=== PATIENT | female | born 1945 | race Caucasian/White ===

== ENCOUNTER 2016-12-19 13:17 | Emergency (ER) | payer OTHER ==
[~2016-12-19] VITALS: Ht 162.6 cm; Wt 48.4 kg
[~2016-12-19 13:17] MED LIST: CEPH500C PO; LRT5 PO; PROM25TA PO; SULF800T23 PO
[2016-12-19 13:19] VITALS: TEMP 36.7; Ht 162.6 cm; Wt 48.4 kg
[2016-12-19] MEDS ORDERED: LISINOPRIL 5 MG TAB PO ONE (13:45)
[2016-12-19] MEDS ORDERED: LISI-729 PO (13:57)
--- NOTE | 2016-12-19 13:58 | EMERGENCY ROOM VISIT NOTE ---
History Report prepared by Rodriguez: Carmela Michael Under the Supervision of: Dr. Josh Wiggins D.O. First contact with patient: 13:24 Chief Complaint: HYPERTENSION Stated Complaint: HIGH BP History of Present Illness The patient is a 71 year old female who presents to the Emergency Room with complaints of persistent hypertension that began four days ago. She currently rates her discomfort as a 5/10 in severity. The patient states that several weeks ago she began experiencing decreased hearing out of her left ear. She additionally notes allergies so she states that she took her allergy medication and Sudafed. The patient states that one week ago she stopped taking the Sudafed. She states that Saturday her blood pressure began to rise, noting 167 mmHg systolically. The patient states that since then it has been up and down intermittently. She denies any history of hypertension. The patient additionally notes hearing a cracking noise in her left ear with blowing her nose. She states that she is very active, noting that at work she often works out twice per day. Source of History: patient Onset: four days ago Position: other (global) Symptom Intensity: 5/10 Quality: other (hypertension) Timing: other (persistent) Note: Associated Symptoms: decreased hearing in left ear. Review of Systems See HPI for pertinent positives & negatives. A total of 10 systems reviewed and were otherwise negative. Past Medical & Surgical Medical Problems: (1) No Known Active Medical Problems Family History Cancer Social History Smoking Status: Never Smoker Smokeless Tobacco Use: No Alcohol Use: none Marital Status: single Housing Status: lives alone Occupation Status: employed Current/Historical Medications Scheduled Lisinopril (Prinivil), 5 MG PO QD Allergies Uncoded Allergies: [place] (Allergy, Unknown, makes her whole body weak and feel "weird", ) Physical Exam Vital Signs Date Time Temp Pulse Resp B/P (MAP) Pulse Ox O2 Delivery O2 Flow Rate FiO2 12/19/16 14:24 76 12/19/16 14:22 73 20 194/83 94 Room Air 12/19/16 13:19 36.7 96 18 186/101 98 Room Air Physical Exam CONSTITUTIONAL/VITAL SIGNS: Reviewed / noted above. GENERAL: Non-toxic in appearance. INTEGUMENTARY: Warm, dry, and [place]. HEAD: Normocephalic. EYES: without scleral icterus or trauma. ENT/OROPHARYNX: clear and moist. LYMPHADENOPATHY/NECK: Is supple without lymphadenopathy or meningismus. RESPIRATORY: Lungs clear and equal. CARDIOVASCULAR: Regular rate and rhythm. GI/ABDOMEN: Soft and nontender. No organomegaly or pulsatile mass. No rebound or guarding. Normal bowel sounds. EXTREMITIES: Warm and well perfused. BACK: No CVA tenderness. NEUROLOGICAL: Intact without focal deficits. PSYCHIATRIC: normal affect. MUSCULOSKELETAL: Normally developed with good muscle tone. Medical Decision & Procedures ER Provider Diagnostic Interpretation: X ray results and stated below per my interpretation and radiology interpretation. CHEST ONE VIEW PORTABLE CLINICAL HISTORY: Fever, sepsis, hypertension COMPARISON STUDY: 10/29/2007 FINDINGS: The cardiac and mediastinal contours are normal. There is no evidence of focal pulmonary consolidation. There is no evidence of failure. No pleural effusions are visualized.[ IMPRESSION: No active disease in the chest. Electronically signed by: Ulises Rosenberg M.D. 12/19/2016 2:11 PM Dictated Date/Time: 12/19/2016 2:11 PM Laboratory Results 12/19/16 14:00 Red Blood Count 4.22, Mean Corpuscular Volume 91.9, Mean Corpuscular Hemoglobin 29.4, Mean Corpuscular Hemoglobin Concent 32.0, Mean Platelet Volume 8.9, Neutrophils (%) (Auto) 50.9, Lymphocytes (%) (Auto) 37.1, Monocytes (%) (Auto) 9.3, Eosinophils (%) (Auto) 1.5, Basophils (%) (Auto) 1.0, Neutrophils # (Auto) 2.45, Lymphocytes # (Auto) 1.79, Monocytes # (Auto) 0.45, Eosinophils # (Auto) 0.07, Basophils # (Auto) 0.05 12/19/16 14:00 Test 12/19/16 14:00 White Blood Count 4.82 K/uL (4.8-10.8) Red Blood Count 4.22 M/uL (4.2-5.4) Hemoglobin 12.4 g/dL (12.0-16.0) Hematocrit 38.8 % (37-47) Mean Corpuscular Volume 91.9 fL (80-100) Mean Corpuscular Hemoglobin 29.4 pg (25-34) Mean Corpuscular Hemoglobin Concent 32.0 g/dl (32-36) Platelet Count 309 K/uL (130-400) Mean Platelet Volume 8.9 fL (7.4-10.4) Neutrophils (%) (Auto) 50.9 % Lymphocytes (%) (Auto) 37.1 % Monocytes (%) (Auto) 9.3 % Eosinophils (%) (Auto) 1.5 % Basophils (%) (Auto) 1.0 % Neutrophils # (Auto) 2.45 K/uL (1.4-6.5) Lymphocytes # (Auto) 1.79 K/uL (1.2-3.4) Monocytes # (Auto) 0.45 K/uL (0.11-0.59) Eosinophils # (Auto) 0.07 K/uL (0-0.5) Basophils # (Auto) 0.05 K/uL (0-0.2) RDW Standard Deviation 44.1 fL (36.4-46.3) RDW Coefficient of Variation 13.2 % (11.5-14.5) Immature Granulocyte % (Auto) 0.2 % Immature Granulocyte # (Auto) 0.01 K/uL (0.00-0.02) Prothrombin Time 10.8 SECONDS (9.0-12.0) Prothromb Time International Ratio 1.0 (0.9-1.1) Activated Partial Thromboplast Time 24.0 SECONDS (21.0-31.0) Partial Thromboplastin Ratio 0.9 Anion Gap 7.0 mmol/L (3-11) Est Creatinine Clear Calc Drug Dose 40.4 ml/min Estimated GFR () 66.9 Estimated GFR (Non- 57.7 BUN/Creatinine Ratio 15.9 (10-20) Calcium Level 9.5 mg/dl (8.5-10.1) Total Creatine Kinase 100 U/L (26-192) Creatine Kinase MB 1.7 ng/ml (0.5-3.6) Creatine Kinase MB Ratio 1.7 (0-3.0) Troponin I < 0.015 ng/ml (0-0.045) Laboratory results as stated above per my review. Medications Administered Medications (Trade) Dose Ordered Sig/Rubin Route Start Time Stop Time Status Last Admin Dose Admin Lisinopril (Zestril Tab) 5 mg NOW ONCE PO 12/19/16 13:45 12/19/16 13:46 DC 12/19/16 14:18 5 MG ECG Indication: other (hypertension) Rate (beats per minute): 77 Rhythm: normal sinus Findings: no acute ischemic change, no ectopy ED Course 1328: Previous medical records were reviewed. The patient was evaluated in room C3. A complete history and physical examination was performed. I discussed the exam findings with her and I discussed the treatment plan. She verbalized complete understanding and agreement. She is ready for discharge shortly. 1345: Ordered Lisinopril 5 mg PO. Medical Decision Differentials include: Acute coronary syndrome, myocardial infarction, CVA, TIA , anemia, infection, pneumonia, UTI, pyelonephritis, poor nutrition, dehydration , electrolyte disturbance, and hypoglycemia. This is a 71-year-old female who presents to the ED with a chief complaint of hypertension. The patient states that she is not sure how long it is been going on. She does not routinely see a doctor. She has not seen a doctor for years. She states that recently she had been taking some Sudafed for a muffled sound in her left ear. She reports this has also been going on for some time. The patient states that her blood pressure was elevated at couple weeks ago as well. She denies any other symptoms. She denies any chest pains, shortness of breath, fevers, severe headaches, other pain syndromes. The patient's exam was unremarkable. Her neurologic exam was normal. She primarily was interested in being started on a blood pressure medication. Blood work was unremarkable. EKG shows a normal sinus rhythm. Chest xray was normal. The patient was felt to be stable for discharge on lisinopril 5 mg daily. She was also advised to follow up with an ENT specialist for her ear. Her exam of her ear did not reveal any abnormalities externally and her oropharynx was clear. Medication Reconcilliation Current Medication List: was personally reviewed by me Blood Pressure Screening Patient's blood pressure: Elevated blood pressure Blood pressure disposition: Referred to PCP Impression Primary Impression: Hypertension Scribe Attestation The scribe's documentation has been prepared under my direction and personally reviewed by me in its entirety. I confirm that the note above accurately reflects all work, treatment, procedures, and medical decision making performed by me. Departure Information Dispostion Home / Self-Care Prescriptions Lisinopril (Prinivil) 5 Mg Tab 5 MG PO QD, #30 TAB Prov: Josh Wiggins D.O. 12/19/16 Referrals No Doctor, Assigned (PCP) Forms HOME CARE DOCUMENTATION FORM, IMPORTANT VISIT INFORMATION, WORK / SCHOOL INSTRUCTIONS Patient Instructions Hypertension [place], [facility], [facility] Additional Instructions Lisinopril as prescribed. Follow-up with your family doctor next week for recheck of your blood pressure your symptoms. They can also give a referral to an cloth tearer for your ear symptoms. Return here for any new or other symptoms.
--- NOTE | 2016-12-19 14:12 | DIAGNOSTIC IMAGING REPORT ---
CHEST ONE VIEW PORTABLE CLINICAL HISTORY: Fever, sepsis, hypertension COMPARISON STUDY: 10/29/2007 FINDINGS: The cardiac and mediastinal contours are normal. There is no evidence of focal pulmonary consolidation. There is no evidence of failure. No pleural effusions are visualized.[ IMPRESSION: No active disease in the chest. Electronically signed by: Ulises Rosenberg M.D. 12/19/2016 2:11 PM Dictated Date/Time: 12/19/2016 2:11 PM
[2016-12-19 14:23] LABS: BASO ABS # 0.05 K/uL (0-0.2); COMPLETE YES; EOS % 1.5 %; HEMATOCRIT 38.8 % (37-47); IG% 0.2 %; LYMPH % 37.1 %; LYMPH ABS # 1.79 K/uL (1.2-3.4); MEAN CELL VOLUME 91.9 fL (80-100); MEAN CORPUSCULAR HEMOGLOBIN 29.4 pg (25-34); MEAN PLATELET VOLUME 8.9 fL (7.4-10.4); MONO % 9.3 %; NEUT % 50.9 %; PLATELET COUNT 309 K/uL (130-400); RED BLOOD COUNT 4.22 M/uL (4.2-5.4); WHITE BLOOD COUNT 4.82 K/uL (4.8-10.8)
[2016-12-19 14:33] LABS: PARTIAL THROMBOPLASTIN RATIO 0.9; PROTHROMBIN TIME (PATIENT) 10.8 SECONDS (9.0-12.0)
[2016-12-19 14:34] LABS: BLOOD UREA NITROGEN 16 mg/dl (7-18); BUN/CREATININE RATIO 15.9 (10-20); CALCIUM 9.5 mg/dl (8.5-10.1); CARBON DIOXIDE 25 mmol/L (21-32); CHLORIDE 104 mmol/L (98-107); CREATININE 0.99 mg/dl (0.60-1.20); GLUCOSE 109 mg/dl (70-99); POTASSIUM 3.8 mmol/L (3.5-5.1); SODIUM 136 mmol/L (136-145)
[2016-12-19 14:39] LABS: CKMB/CK RATIO 1.7 (0-3.0)
[2016-12-19 15:38] VITALS: BP 180/88; PULSE 72; O2SAT 94
== END 2016-12-19 15:38 | disposition home or self-care (01) ==
LOC: C.EDB 13:18 → C.EDC 15:38
DX: I10 Essential (primary) hypertension (principal)

== ENCOUNTER 2018-05-29 14:20 | Inpatient (IN) ==
[2018-05-29] MEDS ORDERED: SODIUM CHLORIDE 0.9% 1000ML 1,000 ML IV ONE (15:07)
[2018-05-29 15:39] LABS: Basophils # (auto) 0.02 K/uL (0-0.2); Basophils % (auto) 0.3 %; Eosinophils # (auto) 0.11 K/uL (0-0.5); Eosinophils % (auto) 1.5 %; Hematocrit (blood only) 32.7 % (37-47); Hemoglobin 11.2 g/dL (12.0-16.0); Immature Granulocytes # (auto) 0.02 K/uL (0.00-0.02); Immature Granulocytes % (auto) 0.3 %; Lymphocytes % (auto) 18.2 %; Mean Corpuscular Hgb Conc 34.3 g/dL (32-36); Mean Corpuscular Volume 86.7 fL (80-100); Mean Platelet Volume 8.9 fL (7.4-10.4); Monocytes # (auto) 0.96 K/uL (0.11-0.59); Monocytes % (auto) 13.4 %; Neutrophils # (auto) 4.75 K/uL (1.4-6.5); Neutrophils % (auto) 66.3 %; Platelet Count 268 K/uL (130-400); RDW Standard Deviation 41.7 fL (36.4-46.3); Red Blood Count 3.77 M/uL (4.2-5.4); White Blood Count 7.16 K/uL (4.8-10.8)
[2018-05-29 15:52] LABS: Appearance Urine Clear (Clear); Bilirubin Urine Negative (Negative); Blood Urine 1+ (Negative); Color Urine Yellow; Glucose Urine UA Negative (Negative); Ketones Urine Negative (Negative); Leukocyte Esterase Urine 2+ (Negative); Nitrite Urine Negative (Negative); Protein Urine Negative (Negative); Specific Gravity Urine 1.013 (1.000-1.030); Urobilinogen Urine Negative (Negative)
[2018-05-29 15:52] LABS: Calcium 8.5 mg/dl (8.5-10.1); Chloride 102 mmol/L (98-107); Potassium 4.1 mmol/L (3.5-5.1); Sodium 132 mmol/L (136-145)
[2018-05-29 16:08] LABS: Alanine Aminotransferase 176 U/L (12-78); Albumin Level 3.4 gm/dl (3.4-5.0); Alkaline Phosphatase 135 U/L (45-117); Aspartate Aminotransferase 79 U/L (15-37); BUN Creatinine Ratio 8.9 (10-20); Bilirubin Direct < 0.1 mg/dl (0-0.2); Bilirubin,Total 0.3 mg/dl (0.2-1); Blood Urea Nitrogen 41 mg/dl (7-18); Carbon Dioxide 24 mmol/L (21-32); Creatinine Clr Calc Pharmacy 8.6 ml/min; Est GFR (African American) 10.2; Est GFR (Non-African American) 8.8; Glucose 92 mg/dl (70-99); Total Protein 6.9 gm/dl (6.4-8.2)
[2018-05-29 16:08] LABS: Bacteria Urine Automated 1+ (Negative); RBC Urine Automated 0-4 /hpf (0-4); WBC Urine Automated >30 /hpf (0-5)
[2018-05-29] MEDS ORDERED: cefTRIAXone SODIUM 1,000 MG/50 ML BAG IV STA (16:15)
--- NOTE | 2018-05-29 16:30 | CT Scan Report ---
CT SCAN OF THE ABDOMEN AND PELVIS WITHOUT IV CONTRAST CLINICAL HISTORY: Epigastric abdominal pain. Renal insufficiency. COMPARISON STUDY: No priors. TECHNIQUE: CT scan of the abdomen and pelvis is performed from the lung bases to the proximal femora. Images are reviewed in the axial, sagittal, and coronal planes. IV contrast was not administered for this examination due to renal insufficiency. Note that the examination is suboptimal without IV cont rast. A dose lowering technique was utilized adhering to the principles of ALARA. CT DOSE: 255.43 mGy.cm FINDINGS: Lung bases: The heart is mildly enlarged and without pericardial effusion. Emphysematous change is no lydia at the lung bases. There is bibasilar scarring/atelectasis. There are small fat-containing Bochda lek hernias. No airspace consolidation or pleural effusion is identified. Scattered calcified granulo mas are observed. There is a tiny hiatal hernia. Liver: The unenhanced liver is normal in size, contour, and attenuation. There is no intrahepatic yu iary ductal dilatation. A 2.4 cm cyst is noted in the left lobe. Gallbladder: Contracted. Spleen: Normal in size and attenuation. Pancreas: The unenhanced pancreas is grossly unremarkable. Adrenal glands: Unremarkable. Kidneys: The unenhanced kidneys are normal in size and without hydronephrosis. There are no renal romulo culi identified. There is no evidence of contour deforming renal mass lesion. There is a septated cys t versus adjacent cyst identified in the right upper pole. This measures up to 5.6 cm. Abdominal vasculature: The abdominal aorta is normal in course and caliber noting advanced atheroscle rotic calcification. Bowel: The small bowel and colon are normal in course and caliber. The appendix is not identified. Peritoneum: There is no intraperitoneal free air or abdominal ascites. Lymphadenopathy: None. Pelvic viscera: The bladder is decompressed and grossly unremarkable. The uterus is surgically absent . No adnexal lesion is seen. Skeletal structures: The skeletal structures are heterogeneously osteopenic. Moderate lumbosacral spo ndylosis is observed, with grade 1 anterolisthesis at L4-L5. No lytic or blastic lesions are seen. IMPRESSION: 1. There are no acute infectious or inflammatory findings identified in the abdomen or pelvis on this unenhanced examination. 2. Emphysema. 3. There is a thinly septated cyst versus adjacent cysts identified in the upper pole of the right ki dney, which measures up to 5.6 cm. Consider a 6 month follow-up renal ultrasound for reassessment. 4. Additional findings as above. Electronically signed by: Andrea Nelson M.D. 05/29/2018 4:29 PM
[2018-05-29] MEDS ORDERED: MoRPHine SULFATE 2 MG/ML CARP IV STA (16:34)
[2018-05-29] MEDS ORDERED: MoRPHine SULFATE 2 MG/ML CARP IV PRN (17:43)
--- NOTE | 2018-05-29 17:54 | Emergency Department Note ---
Entered by Olegario Khan acting as a scribe for Raul Lopez History of Present Illness General Chief complaint: Referred by Doctor Stated complaint: DR SENT TO ER Time Seen by Provider: 05/29/18 15:07 Source: patient and family History of Present Illness Onset (ago): hour(s) (labs obtained today) Location: head (global) Pain Consistency: + other (persistent) Quality: + other (abnormal labs) Associated symptoms: + chest pain and + other (abdominal pain) The patient is a 73 year old female who presents to the Emergency Room after referral from her PCP for abnormal labs. Family reports that the labs were ordered by her [facility] PCP for recent illness and rectal bleeding for the past several months. The patient reports some persistent abdominal pain and occasional chest pain. She notes that she urinated herself once recently, but she attributes this to dry heaving and otherwise denies urinary symptoms, history of kidney problems, or dialysis. Home Medications Home Medications Medication Instructions Recorded Confirmed Type aspirin 81 mg PO DAILY 05/29/18 05/29/18 History lisinopril 10 mg PO TID 05/29/18 05/29/18 History Allergies Allergy/AdvReac Type Severity Reaction Status Date / Time mivacurium Allergy Unknown HYPERVENTIL Verified 09/08/17 13:02 ATES azithromycin AdvReac Tachycardia Unverified 05/29/18 15:46 Past Med/Surg History Medical History CKD (chronic kidney disease), stage III (Chronic) HTN (hypertension) (Chronic) Bronchitis History of hysterectomy Hypertension Family History Other Cancer Social History Feels Safe at Home: Yes Smoking Status: Never smoker Review of Systems See HPI for pertinent positives & negatives. and A total of 10 systems reviewed and were otherwise negative Physical Exam Vital Signs Vital Signs - 24 hr 05/29/18 14:58 05/29/18 15:07 05/29/18 16:48 Temperature 36.9 C Temperature Source Oral Oral Sepsis Recent Fever Within 48 Hours No Sepsis Action Taken by Nursing No Action Required Pulse Rate 76 85 Pulse Rate from SpO2 Sensor 83 Respiratory Rate 20 23 Respiratory Effort / Characteristics Non-Labored Spontaneous Respiratory Depth Normal Blood Pressure 161/81 H 117/87 Blood Pressure Mean 107 97 Pulse Oximetry 100 97 Oxygen Delivery Method Room Air Room Air GENERAL: She is oriented to person, place, and time. She appears well-developed and well-nourished. She does not appear distressed. HENT: Exam performed. Head: Normocephalic and atraumatic. Right Ear: External ear normal. No mastoid tenderness. Left Ear: External ear normal. No mastoid tenderness. Mouth/Throat: The oropharynx is clear and moist. No trismus in the jaw. No dental abscesses or uvula swelling. No oropharyngeal exudate or tonsillar abscesses. EYES: Conjunctivae and EOM are normal. Pupils are equal, round, and reactive to light. Right eye exhibits no discharge. Left eye exhibits no discharge. No scleral icterus. NECK: Normal range of motion. Neck supple. No JVD present. No spinous process tenderness present. No carotid bruit present. No rigidity. No tracheal deviation and normal range of motion present. No Brudzinski's sign and no Kernig's sign noted. CV: Normal rate, regular rhythm, normal heart sounds and intact distal pulses. There is no peripheral edema. Palpable radial pulses bue. PULM/CHEST: Effort normal and breath sounds normal. No respiratory distress. No stridor. She has no wheezes. She has no rales. Chest Wall: She exhibits no tenderness. ABD: The abdomen is soft. Bowel sounds are normal. She has no distension. No mas s is present. There is no tenderness. There is no rebound, no guarding, no Trujillo's sign and no tenderness at McBurney's point. Rovsig negative. RECTAL: Bright red blood per rectum. MUSC/SKEL: Normal range of motion. There is no peripheral edema, tenderness or deformity. LYMPH: No cervical adenopathy. NEURO: She is alert and oriented to person, place, and time. She has normal strength. No cranial nerve deficit or sensory deficit. Coordination and gait normal. GCS eye subscore is 4. GCS verbal subscore is 5. GCS motor subscore is 6. cerbellar tests wnl. SKIN: Skin is warm and dry. She is not diaphoretic. PSYCH: She has a normal mood and affect. Her behavior is normal. Judgment and thought content normal. Course 1518: The patient was evaluated in room C10, and a complete history and physical examination were performed. EMR reviewed. Outpatient labs were performed today showing creatinine of 4.9 and potassium of 4.3. The patients baseline creatinine is 1. 1637: Vital signs stable. Labs show a creatinine of 4.64. Lipase 2655. Hemo globin stable. No leukocytosis. Urine is concerning for infection. Patient will be treated with Rocephin 1 g IV piggyback. Liver enzymes are also elevated, AST 79 ALT 176, [address] of the abdomen was conducted without contrast due to patient's acute kidney injury and it showed no acute infectious or inflammatory findings. Gallbladder was contracted, there is no intrahepatic biliary duct dilatation. Pancreas was grossly unremarkable. I consulted Rosalia Saxena PA-C: [facility] Hospitalist. The patient will be reevaluated for hospitalization. I discussed with the [facility] Hospitalist team, and they recommended obtaining an ultrasound of the right upper quadrant in addition. They will be down to see the patient shortly. Administered Medications Discontinued Medications Sodium Chloride (Nss 1000ml) 1,000 mls @ 999 mls/hr IV .[id number] ONE Stop: 05/29/18 16:07 Last Infusion: 05/29/18 16:42 Dose: 0 mls/hr Documented by: [id number] Admin: 05/29/18 15:28 Dose: 999 mls/hr Documented by: [id number] Ceftriaxone Sodium (Rocephin) 1,000 mg in 50 mls @ 100 mls/hr IV NOW STA Stop: 05/29/18 16:44 Last Infusion: 05/29/18 17:24 Dose: 0 mls/hr Documented by: [id number] Admin: 05/29/18 16:51 Dose: 100 mls/hr Documented by: [id number] Morphine Sulfate (Morphine Sulfate) 2 mg IV NOW STA Stop: 05/29/18 16:35 Last Admin: 05/29/18 16:49 Dose: 2 mg Documented by: [id number] Medical Decision Making Medical Records Attestation: I reviewed the patient's medical records. Home Medications Current Medication List: was personally reviewed by me Laboratory Data Attestation: I reviewed the patient's lab results. Result diagrams: 05/29/18 15:25 05/29/18 15:25 Lab Results 05/29/18 05/29/18 05/29/18 Range/Units 15:25 15:25 15:25 WBC 7.16 (4.8-10.8) K/uL RBC 3.77 L (4.2-5.4) M/uL Hgb 11.2 L (12.0-16.0) g/dL Hct 32.7 L (37-47) % MCV 86.7 (80-100) fL MCH 29.7 (25-34) pg MCHC 34.3 (32-36) g/dL RDW Std Deviation 41.7 (36.4-46.3) fL RDW Coeff of Robert 13.0 (11.5-14.5) % Plt Count 268 (130-400) K/uL MPV 8.9 (7.4-10.4) fL Immature Gran % (Auto) 0.3 % Neut % (Auto) 66.3 % Lymph % (Auto) 18.2 % King % (Auto) 13.4 % Eos % (Auto) 1.5 % Baso % (Auto) 0.3 % Immature Gran # (Auto) 0.02 (0.00-0.02) K/uL Neut # (Auto) 4.75 (1.4-6.5) K/uL Lymph # (Auto) 1.30 (1.2-3.4) K/uL King # (Auto) 0.96 H (0.11-0.59) K/uL Eos # (Auto) 0.11 (0-0.5) K/uL Baso # (Auto) 0.02 (0-0.2) K/uL Sodium 132 L (136-145) mmol/L Potassium 4.1 (3.5-5.1) mmol/L Chloride 102 (98-107) mmol/L Carbon Dioxide 24 (21-32) mmol/L Anion Gap 6.0 (3-11) BUN 41 H (7-18) mg/dl Creatinine 4.64 H* (0.6-1.2) mg/dl Est Cr Clr Drug Dosing 8.6 ml/min Est GFR ( Amer) 10.2 Est GFR (Non-Af Amer) 8.8 BUN/Creatinine Ratio 8.9 L (10-20) Glucose 92 (70-99) mg/dl Calcium 8.5 (8.5-10.1) mg/dl Total Bilirubin 0.3 (0.2-1) mg/dl Direct Bilirubin < 0.1 (0-0.2) mg/dl AST 79 H (15-37) U/L ALT 176 H (12-78) U/L Alkaline Phosphatase 135 H (45-117) U/L Total Protein 6.9 (6.4-8.2) gm/dl Albumin 3.4 (3.4-5.0) gm/dl Lipase 2655 H (73-393) U/L Urine Color Urine Appearance (Clear) Urine pH (4.5-7.5) Ur Specific [place] (1.000-1.030) Urine Protein (Negative) Urine Glucose (UA) (Negative) Urine Ketones (Negative) Urine Blood (Negative) Urine Nitrite (Negative) Urine Bilirubin (Negative) Urine Urobilinogen (Negative) Ur Leukocyte Esterase (Negative) Urine WBC (Auto) (0-5) /hpf Urine RBC (Auto) (0-4) /hpf U Hyaline Cast (Auto) (0-5) /lpf U Epithel Cells (Auto) (0-5) /lpf Urine Bacteria (Auto) (Negative) Blood Type A Positive Antibody Screen NEGATIVE 05/29/18 05/29/18 Range/Units 15:25 15:30 WBC (4.8-10.8) K/uL RBC (4.2-5.4) M/uL Hgb (12.0-16.0) g/dL Hct (37-47) % MCV (80-100) fL MCH (25-34) pg MCHC (32-36) g/dL RDW Std Deviation (36.4-46.3) fL RDW Coeff of Robert (11.5-14.5) % Plt Count (130-400) K/uL MPV (7.4-10.4) fL Immature Gran % (Auto) % Neut % (Auto) % Lymph % (Auto) % King % (Auto) % Eos % (Auto) % Baso % (Auto) % Immature Gran # (Auto) (0.00-0.02) K/uL Neut # (Auto) (1.4-6.5) K/uL Lymph # (Auto) (1.2-3.4) K/uL King # (Auto) (0.11-0.59) K/uL Eos # (Auto) (0-0.5) K/uL Baso # (Auto) (0-0.2) K/uL Sodium (136-145) mmol/L Potassium (3.5-5.1) mmol/L Chloride (98-107) mmol/L Carbon Dioxide (21-32) mmol/L Anion Gap (3-11) BUN (7-18) mg/dl Creatinine (0.6-1.2) mg/dl Est Cr Clr Drug Dosing ml/min Est GFR ( Amer) Est GFR (Non-Af Amer) BUN/Creatinine Ratio (10-20) Glucose (70-99) mg/dl Calcium (8.5-10.1) mg/dl Total Bilirubin (0.2-1) mg/dl Direct Bilirubin (0-0.2) mg/dl AST (15-37) U/L ALT (12-78) U/L Alkaline Phosphatase (45-117) U/L Total Protein (6.4-8.2) gm/dl Albumin (3.4-5.0) gm/dl Lipase Cancelled (73-393) U/L Urine Color Yellow Urine Appearance Clear (Clear) Urine pH 5.0 (4.5-7.5) Ur Specific [place] 1.013 (1.000-1.030) Urine Protein Negative (Negative) Urine Glucose (UA) Negative (Negative) Urine Ketones Negative (Negative) Urine Blood 1+ H (Negative) Urine Nitrite Negative (Negative) Urine Bilirubin Negative (Negative) Urine Urobilinogen Negative (Negative) Ur Leukocyte Esterase 2+ H (Negative) Urine WBC (Auto) >30 H (0-5) /hpf Urine RBC (Auto) 0-4 (0-4) /hpf U Hyaline Cast (Auto) 1-5 (0-5) /lpf U Epithel Cells (Auto) 10-20 H (0-5) /lpf Urine Bacteria (Auto) 1+ H (Negative) Blood Type Antibody Screen Imaging Data Radiologist's Impression: Radiology results as stated below per my review and the radiologist's interpretation: CT SCAN OF THE ABDOMEN AND PELVIS WITHOUT IV CONTRAST CLINICAL HISTORY: Epigastric abdominal pain. Renal insufficiency. COMPARISON STUDY: No priors. TECHNIQUE: CT scan of the abdomen and pelvis is performed from the lung bases to the proximal femora. Images are reviewed in the axial, sagittal, and coronal planes. IV contrast was not administered for this examination due to renal insufficiency. Note that the examination is suboptimal without IV contrast. A dose lowering technique was utilized adhering to the principles of ALARA. CT DOSE: 255.43 mGy.cm FINDINGS: Lung bases: The heart is mildly enlarged and without pericardial effusion. Emphysematous change is noted at the lung bases. There is bibasilar scarring/atelectasis. There are small fat-containing Bochdalek hernias. No airspace consolidation or pleural effusion is identified. Scattered calcified granulomas are observed. There is a tiny hiatal hernia. Liver: The unenhanced liver is normal in size, contour, and attenuation. There is no intrahepatic biliary ductal dilatation. A 2.4 cm cyst is noted in the left lobe. Gallbladder: Contracted. Spleen: Normal in size and attenuation. Pancreas: The unenhanced pancreas is grossly unremarkable. Adrenal glands: Unremarkable. Kidneys: The unenhanced kidneys are normal in size and without hydronephrosis. There are no renal calculi identified. There is no evidence of contour deforming renal mass lesion. There is a septated cyst versus adjacent cyst identified in t he right upper pole. This measures up to 5.6 cm. Abdominal vasculature: The abdominal aorta is normal in course and caliber noting advanced atherosclerotic calcification. Bowel: The small bowel and colon are normal in course and caliber. The appendix is not identified. Peritoneum: There is no intraperitoneal free air or abdominal ascites. Lymphadenopathy: None. Pelvic viscera: The bladder is decompressed and grossly unremarkable. The uterus is surgically absent. No adnexal lesion is seen. Skeletal structures: The skeletal structures are heterogeneously osteopenic. Moderate lumbosacral spondylosis is observed, with grade 1 anterolisthesis at L4-L5. No lytic or blastic lesions are seen. IMPRESSION: 1. There are no acute infectious or inflammatory findings identified in the abdomen or pelvis on this unenhanced examination. 2. Emphysema. 3. There is a thinly septated cyst versus adjacent cysts identified in the upper pole of the right kidney, which measures up to 5.6 cm. Consider a 6 month follow-up renal ultrasound for reassessment. 4. Additional findings as above. Electronically signed by: Andrea Nelson M.D. 05/29/2018 4:29 PM ECG Data Attestation: I personally reviewed and interpreted this ECG as follows: Indication: other (abnormal labs) Rate (beats per minute): 72 Rhythm: sinus rhythm Findings: + other (QRS and QTc intervals within normal limits) Blood Pressure Blood Pressure Findings: Elevated blood pressure Blood Pressure Disposition: further management by hospitalist MDM Narrative Vital signs stable. Labs show a creatinine of 4.64. Lipase 2655. Hemoglobin st able. No leukocytosis. Urine is concerning for infection. Patient will be treated with Rocephin 1 g IV piggyback. Liver enzymes are also elevated, AST 79 ALT 176, [address] of the abdomen was conducted without contrast due to patient's acute kidney injury and it showed no acute infectious or inflammatory findings. Gallbladder was contracted, there is no intrahepatic biliary duct dilatation. Pancreas was grossly unremarkable. I consulted Rosalia Saxena PA-C: [facility] Hospitalist. The patient will be reevaluated for hospitalization. I discussed with the [facility] hospitalist team, and they recommended obtaining an ultrasound of the right upper quadrant in addition. They will be down to see the patient shortly. Impression & Plan MAGGI (acute kidney injury), UTI (urinary tract infection), Pancreatitis Discharge Plan Visit Data Chief Complaint: Referred by Doctor Stated Complaint: DR SENT TO ER ED Provider: Raul Lopez Discharge Problem: MAGGI (acute kidney injury), UTI (urinary tract infection), Pancreatitis Patient Disposition: Being Evaluated by Hospitalist Forms Stand Alone Forms: My [facility] Prescriptions Prescriptions: No Action lisinopril 10 mg tablet 10 mg PO TID RF: 0 aspirin 81 mg Tablet,Chewable 81 mg PO DAILY RF: 0 Referrals Referrals: Cristian Ragsdale MD [Primary Care Provider] - Discharge Problem: UTI (urinary tract infection) Qualifiers: Urinary tract infection type: site unspecified Hematuria presence: with hematuria Qualified Code(s): N39.0 - Urinary tract infection, site not specified Pancreatitis Qualifiers: Chronicity: acute Pancreatitis type: unspecified pancreatitis type Acute pancreatitis complication: unspecified Qualified Code(s): K85.90 - Acute pancreatitis without necrosis or infection, unspecified The scribe's documentation has been prepared under my direction and personally reviewed by me in its entirety. I confirm that the note above accurately reflects all work, treatment, procedures, and medical decision making performed by me.
--- NOTE | 2018-05-29 20:25 | History & Physical Report ---
Date of Service May 29, 2018 Assessment & Plan (1) MAGGI (acute kidney injury): Pt with diarrhea, vomiting started 4 days ago. Poor oral intake. Is on lisinopril. Presented with Cr: 4.6. Baseline Cr: 1. CT abd/pelvis without contrast: No ureteral stone noted. There is a thinly septated cyst versus adjacent cysts identified in the upper pole of the right kidney, which measures up to 5.6 cm. Na: 132, K: 4.1, Cl: 102, CO2: 24, BUN: 41, Cr: 4.6, GFR: 8.8 -treat UTI as below -monitor renal functions -IVF -avoid nephrotoxic agents, avoid NSAIDs, lisinopril -nephrology consult, appreciate recommendations. Discussed IVF with fusion operator and recommends LR @100ml/hr (2) Pancreatitis: Onset diarrhea, vomiting, epigastric abdominal pain [address] Abd/pelvis w/o contrast: There are no acute infectious or inflammatory findings identified in the abdomen or pelvis on this unenhanced examination Bili: <0.1, AST: 79, ALT: 176, Alk Phos: 135, lipase: 2655 -LR @100ml/hr -npo -zofran prn nausea, morphine prn pain -pending US RUQ -GI consult, appreciate recommendations (3) Elevated liver function tests: Bili: <0.1, AST: 79, ALT: 176, Alk Phos: 135, lipase: 2655 -pending US RUQ -monitor liver functions (4) UTI (urinary tract infection): Denies urinary symptoms UA: 1+blood, 2+leuk, >30 WBC, 10-20 epithel, 1+ bacteria -Rocephin -pending urine culture (5) HTN (hypertension): -Hold lisinopril with MAGGI -monitor BP, may need to consider different agent (6) Rectal bleeding: Reported hx bright red rectal bleeding with BM's x several months Hgb: 11 -monitor -GI consult, appreciate recommendations DVT Prophylaxis -SCDs for now with reported hx rectal bleeding Full Code as per discussion with pt Follows with Dr Khan for routine care Pt was seen with Dr Charles. See addendum History of Present Illness Chief Complaint: abdominal pain, abnormal labs Primary Care Provider: Cristian Ragsdale MD Pt is a 73 y/o F with PMH HTN, CKD III who presented to ER from PCP office for abdominal pain and abnormal renal functions. Patient reports numerous episodes of diarrhea, episodes of vomiting 4 days ago. Also started mid abdominal pain with radiation to LUQ, and having mid back pain. C/O generalized ANDUJAR, intermittent dizziness with standing. Reports last episode of diarrhea was 2 days ago. Patient has been having dry heaves for the past several days. Reports chills however did not record fevers at home. Reports has had decreased appetite and decreased oral intake. Past couple of days with increased burping and had trouble swallowing solids. States yesterday was able to eat some cream soup. Has been able to swallow liquids today, denies food bolus sensation. Was seen at PCPs office today for symptoms and was given dose of Toradol and had labs revealing creatinine >4 with her baseline ~1. Patient reports that has been having bright red bloody stools for several months, initially with benign colonoscopy however reports is scheduled for one soon. Patient denies any recent antibiotic use, recent travel, ill contacts. Denies diaphoresis, hematemesis, syncope, vision changes, neck pain, CP, SOB, orthopnea, palpitations, cough, sore throat, choking, otalgia, rhinorrhea, paresthesias, extremity weakness, extremity edema, rashes, dysuria, hematuria, urinary frequency. Allergies Allergy/AdvReac Type Severity Reaction Status Date / Time mivacurium Allergy Unknown HYPERVENTIL Verified 09/08/17 13:02 ATES azithromycin AdvReac Tachycardia Unverified 05/29/18 15:46 Home Medications Home Medications Medication Instructions Recorded Confirmed Type aspirin 81 mg PO DAILY 05/29/18 05/29/18 History lisinopril 10 mg PO TID 05/29/18 05/29/18 History Past Med/Surg History Medical History History of hysterectomy (Chronic) CKD (chronic kidney disease), stage III (Chronic) HTN (hypertension) (Chronic) Bronchitis (Resolved) Family History Other Cancer Hypertension Social History Preferred Language: Turkish Communication Ability: Effective [place] Tower Loader Required: No Beliefs That Will Affect Care: None Current Living Situation: Alone Other Information That Helps Us Care for You: No Feels Safe at Home: Yes Safety Concerns: Feels Safe At This Time Smoking Status: Former smoker Hx Alcohol Use: No Hx Substance Use: No Review of Systems All systems reviewed & are unremarkable except as noted in HPI & below Physical Exam Vital Signs (Past 24 Hours): Last Vital Signs Temp 36.9 C 05/29/18 14:58 Pulse 66 05/29/18 19:16 Resp 19 05/29/18 19:16 BP 141/66 H 05/29/18 19:16 Pulse Ox 96 05/29/18 19:16 Physical Exam: General: no acute distress, WDWN Head: normocephalic, atraumatic Eyes: PERRL, EOM's intact, conjunctiva non-injected, anicteric ENT: normal inspection external ears, nose, mucous membranes dry Neck: supple, trachea midline, non-tender Lungs: clear, no respiratory distress, no wheezing/rhonchi/rales CV: RRR, no murmur, no pretibial edema Abd: normal BS, soft, +tender to palpation epigastric region without rebound or guarding Ext: no cyanosis, no calf tenderness Neuro: A&O x 3, no focal deficits noted, normal affect Skin: warm, dry Results & Data Laboratory Results Short CBC 05/29/18 Range/Units 15:25 WBC 7.16 (4.8-10.8) K/uL Hgb 11.2 L (12.0-16.0) g/dL Hct 32.7 L (37-47) % Plt Count 268 (130-400) K/uL BMP 05/29/18 15:25 Sodium 132 L Potassium 4.1 Chloride 102 Carbon Dioxide 24 BUN 41 H Creatinine 4.64 H* Glucose 92 Calcium 8.5 Liver Function 05/29/18 Range/Units 15:25 Total Bilirubin 0.3 (0.2-1) mg/dl Direct Bilirubin < 0.1 (0-0.2) mg/dl AST 79 H (15-37) U/L ALT 176 H (12-78) U/L Alkaline Phosphatase 135 H (45-117) U/L Albumin 3.4 (3.4-5.0) gm/dl Urine 05/29/18 Range/Units 15:30 Urine Color Yellow Urine Appearance Clear (Clear) Urine pH 5.0 (4.5-7.5) Ur Specific [place] 1.013 (1.000-1.030) Urine Protein Negative (Negative) Urine Glucose (UA) Negative (Negative) Diagnostic Findings CT ABD/PELVIS: IMPRESSION: 1. There are no acute infectious or inflammatory findings identified in the abdomen or pelvis on this unenhanced examination. 2. Emphysema. 3. There is a thinly septated cyst versus adjacent cysts identified in the upper pole of the right kidney, which measures up to 5.6 cm. Consider a 6 month follow-up renal ultrasound for reassessment. 4. Additional findings as above. Supervising Physician Co-Signing Physician Notes Care coordinated with Harper CHILDRESS. Agree with above note. Patient seen and examined. Please refer to her notes for full details. Vital signs reviewed. Physical exam: General exam: Alert and oriented. Not in acute distress. CVS: S1 and S2 heard, regular rate and rhythm, no murmurs. RS: Clear to auscultation, no wheezing or crackles. ABD: Soft, bowel sounds present, mild diffuse discomfort, no distention. TECHNOLOGY EDUCATION TEACHER: Nonfocal. EXT: No edema, no erythema. Labs: Reviewed. Assessment and plan: Nausea/vomiting/diarrhea started on saturday several episodes last diarrhea and vomiting couple of days ago but still has dry heaves not able to eat much- finding difficult to swallow and not keeping it down viral gastroenteritis? lipase elevated at 1200 could be non specific or pancreatitis ct abd/pelvis without contrast unremarkable Gall bladder US no sgall stones or acute cholecystitis NPO, Iv fluids GI consult in am MAGGI cr 4.1 BUN 41 mostly prerenal with above symptoms hold lisinopril iv fluids nephrology consulted follow labs in am UTI Rocephin follow cultures Rectal Bleed? going on for sometime hb 11 follow h and h gi consulted. Other diagnosis and plan of care as per Harper PITTS. Greg carson MD. (1) UTI (urinary tract infection) Hematuria presence: with hematuria Urinary tract infection type: site unspecified Qualified Code(s): N39.0 - Urinary tract infection, site not specified; R31.9 - Hematuria, unspecified (2) Pancreatitis Acute pancreatitis complication: unspecified Chronicity: acute Pancreatitis type: unspecified pancreatitis type Qualified Code(s): K85.90 - Acute pancreatitis without necrosis or infection, unspecified
--- NOTE | 2018-05-29 20:28 | Ultrasound Report ---
ULTRASOUND RIGHT UPPER QUADRANT ABDOMEN CLINICAL HISTORY: Epigastric abdominal pain. COMPARISON STUDY: Abdominal CT dated 05/29/2018. TECHNIQUE: Real-time, grayscale, and color flow sonography of the right upper quadrant of the abdomen was performed. Images are reviewed in the transverse and longitudinal planes. FINDINGS: Liver: The liver is normal in size and echotexture. There is no intrahepatic biliary ductal dilatatio n. A 3 cm cyst persistent adjacent cysts is noted in the left lobe. The main portal vein is patent. Gallbladder: The gallbladder is mildly distended but otherwise normal in appearance. No gallstones ar e identified. There is no gallbladder wall thickening. A sonographic Trujillo's sign is reportedly abse nt. The common bile duct measures up to 0.9 cm in diameter. Pancreas: Visualized portions of the pancreatic head and body are normal in appearance. The splenic v ein is patent. Right kidney: Survey images of the right kidney demonstrate normal size and echotexture. There is no hydronephrosis. There is a large septated cyst versus adjacent cysts present in the upper pole of the right kidney. This measures up to 8.2 cm in aggregate dimension. Ascites: Trace perihepatic/pericholecystic fluid is noted. IMPRESSION: 1. No shadowing gallstones are identified and there is no sonographic evidence of acute cholecystitis . 2. There is trace nonspecific perihepatic/pericholecystic fluid. 3. There is a large simple-appearing septated cyst versus adjacent cyst identified in the upper pole of the right kidney. A precautionary 6 month follow-up renal ultrasound is recommended for reassessme nt. Electronically signed by: Anrdea Nelson M.D. 05/29/2018 8:26 PM
[2018-05-29] MEDS: LACTATED RINGER'S 1,000 ML IV SCH (21:13)
[2018-05-29] MEDS ORDERED: LORazepam 0.5 MG TAB PO STA (22:50)
[2018-05-30] MEDS: LACTATED RINGER'S 1,000 ML IV SCH ×2 (06:03→13:17)
[2018-05-30 07:21] LABS: Hematocrit (blood only) 30.6 % (37-47); Hemoglobin 10.3 g/dL (12.0-16.0); Mean Corpuscular Hgb Conc 33.7 g/dL (32-36); Mean Corpuscular Volume 88.4 fL (80-100); Mean Platelet Volume 8.7 fL (7.4-10.4); Platelet Count 243 K/uL (130-400); RDW Coefficient of Variation 13.2 % (11.5-14.5); RDW Standard Deviation 42.5 fL (36.4-46.3); Red Blood Count 3.46 M/uL (4.2-5.4); White Blood Count 5.44 K/uL (4.8-10.8)
[2018-05-30 08:03] LABS: Alanine Aminotransferase 147 U/L (12-78); Albumin Level 2.9 gm/dl (3.4-5.0); Alkaline Phosphatase 115 U/L (45-117); Aspartate Aminotransferase 71 U/L (15-37); BUN Creatinine Ratio 9.4 (10-20); Bilirubin Direct < 0.1 mg/dl (0-0.2); Bilirubin,Total 0.2 mg/dl (0.2-1); Blood Urea Nitrogen 38 mg/dl (7-18); Calcium 8.4 mg/dl (8.5-10.1); Carbon Dioxide 21 mmol/L (21-32); Chloride 112 mmol/L (98-107); Creatinine Clr Calc Pharmacy 9.8 ml/min; Est GFR (Non-African American) 10.3; Globulin 2.9 gm/dl (2.5-4.0); Glucose 82 mg/dl (70-99); Potassium 4.6 mmol/L (3.5-5.1); Sodium 139 mmol/L (136-145); Total Protein 5.8 gm/dl (6.4-8.2)
[2018-05-30] MEDS ORDERED: ACETAMINOPHEN SOLN 500 MG/15.62 ML UDP PO PRN (08:18)
--- NOTE | 2018-05-30 09:44 | Gastrointestinal Consultation ---
Date of Consultation May 30, 2018 Assessment & Plan (1) Pancreatitis: 73 year old female w/ resolved upper abd pain, nausea, vomiting and diarrhea admitted w/ MAGGI, elevated lipase concerning for acute pancreatitis - she does have a GB, no biliary abnormality identified on current imaging. History of chronic rectal bleeding - Stool for c.diff - Stool culture - Trend H&H - Transfuse PRN - Monitor and document all GI output - OP C-scopy as arranged Pancreatitis - NPO for bowel rest - Can trial clear liquids as symptoms improve - LR 150 mL/hr - Anti-emetics PRN - Analgesia PRN - MRCP - Pending results of MRCP would recommend general surgery consultation Present on Admission?: Yes (2) Rectal bleeding: Supervising Physician Co-Signing Physician Notes Late entry: ptient was seen and examined with CASEY Chavarria on 05/30. Her note reflects our findings and plan. History of Present Illness Reason for Consultation: pancreatitis Requesting Physician: Charisse Attending Physician: Juanita Mcqueen MD History of Present Illness 73 year old female with history of endometrial CA s/p KIMBERLI&BSO, HTN, CKD-3 who presents to the ED for abnormal labs - GI asked to evaluate for rectal bleeding and pancreatits. Pt was seen and evaluated, chart reviewed. Daughter at bedside. Notes she has had chronic rectal bleeding since February. Was planning for an OP colonoscopy. Has chronic constipation on probiotics. Over the past 3-4 months has had intermittent episodes of rectal bleeding. Associated with rectal pain, rectal pressure. Will see BRB in the toilet bowl and on the toilet tissue. Associated clots. No lightheadedness or dizziness. Has never had a c-scopy before. Saturday, abrupt onset of epigastric pain radiating to her back associated w/ nausea, vomiting and diarrhea. Denies any black/bloody stools or emesis. Was evaluated by her PCP w/ labs and plan for CT scan however, was sent to the ED w/ MAGGI. this AM notes near resolution of symptoms. No nausea, vomiting. No abd pain. On arrival, she was afebrile w/o leukocytosis. H&H stable 11.8 and 35 w/ normal PLT count. BUN elevation at 42 w/ creat 4.9 which is trending down this AM BUN 38, FISHER HAND LINE 4.06. Her lipase was elevated at 2655, w/ mild LFT elevation TB 0.2, AST 71, ALT 147, ALKP 115. Baseline unknown. Noncon CT negative from GI standpoint. Urinalysis + started on ABX No ETOH No new meds No prior episods of pancreatitis Still has GB No weight loss EGD: none Colonoscopy: none ABD US: No shadowing gallstones are identified and there is no sonographic evidence of acute cholecystitis.There is trace nonspecific perihepatic/pericholecystic fluid. CT: Liver: The unenhanced liver is normal in size, contour, and attenuation. There is no intrahepatic biliary ductal dilatation. A 2.4 cm cyst is noted in the left lobe.Gallbladder: Contracted.Spleen: Normal in size and attenuation.Pancreas: The unenhanced pancreas is grossly unremarkable Allergies Allergy/AdvReac Type Severity Reaction Status Date / Time azithromycin Allergy hyperventil Verified 06/05/18 09:06 ation Home Medications Home Medications Medication Instructions Recorded Confirmed Type amlodipine [Norvasc] 5 mg PO QAM 30 Days #30 tab 06/03/18 06/06/18 Rx aspirin 81 mg PO DAILY 06/05/18 06/06/18 History Patient History Medical History History of hysterectomy (Chronic) CKD (chronic kidney disease), stage III (Chronic) HTN (hypertension) (Chronic) Bronchitis (Resolved) Surgical History History of bilateral tubal ligation History of carpal tunnel surgery of right wrist History of tonsillectomy History of tooth extraction all teeth removed History of total abdominal hysterectomy and bilateral salpingo-oophorectomy Family History Other Cancer Hypertension No family history of adverse response to anesthesia Social History Preferred Language: Pashto Communication Ability: Effective Beliefs That Will Affect Care: None Current Living Situation: Alone Feels Safe at Home: Yes Smoking Status: Former smoker Second Hand Exposure: No Hx Alcohol Use: No Hx Substance Use: No Physical Exam Vital Signs (Past 24 Hours): Last Vital Signs Temp 36.7 C 05/30/18 07:50 Pulse 75 05/30/18 07:50 Resp 20 05/30/18 07:50 BP 146/84 H 05/30/18 07:50 Pulse Ox 93 05/30/18 07:50 Constitutional: well developed, well nourished, cooperative and comfortable; no acute distress Respiratory: normal respiratory effort, lungs clear to auscultation Cardiovascular: RRR, no murmur, no edema Gastrointestinal (Abdomen): normal bowel sounds, soft, nontender, no hepatosplenomegaly Skin: no rashes, warm and dry Results & Data Laboratory Results 05/30/18 05/30/18 05/29/18 Range/Units 07:08 07:08 15:30 WBC 5.44 (4.8-10.8) K/uL RBC 3.46 L (4.2-5.4) M/uL Hgb 10.3 L (12.0-16.0) g/dL Hct 30.6 L (37-47) % MCV 88.4 (80-100) fL MCH 29.8 (25-34) pg MCHC 33.7 (32-36) g/dL RDW Std Deviation 42.5 (36.4-46.3) fL RDW Coeff of Robert 13.2 (11.5-14.5) % Plt Count 243 (130-400) K/uL MPV 8.7 (7.4-10.4) fL Immature Gran % (Auto) % Neut % (Auto) % Lymph % (Auto) % [place] % (Auto) % Eos % (Auto) % Baso % (Auto) % Immature Gran # (Auto) (0.00-0.02) K/uL Neut # (Auto) (1.4-6.5) K/uL Lymph # (Auto) (1.2-3.4) K/uL [place] # (Auto) (0.11-0.59) K/uL Eos # (Auto) (0-0.5) K/uL Baso # (Auto) (0-0.2) K/uL Sodium 139 D (136-145) mmol/L Potassium 4.6 (3.5-5.1) mmol/L Chloride 112 H (98-107) mmol/L Carbon Dioxide 21 (21-32) mmol/L Anion Gap 6.0 (3-11) BUN 38 H (7-18) mg/dl Creatinine 4.06 H D (0.6-1.2) mg/dl Est Cr Clr Drug Dosing 9.8 ml/min Est GFR ( Amer) 12.0 Est GFR (Non-Af Amer) 10.3 BUN/Creatinine Ratio 9.4 L (10-20) Glucose 82 (70-99) mg/dl Calcium 8.4 L (8.5-10.1) mg/dl Total Bilirubin 0.2 (0.2-1) mg/dl Direct Bilirubin < 0.1 (0-0.2) mg/dl AST 71 H (15-37) U/L ALT 147 H (12-78) U/L Alkaline Phosphatase 115 (45-117) U/L Total Protein 5.8 L (6.4-8.2) gm/dl Albumin 2.9 L (3.4-5.0) gm/dl Globulin 2.9 (2.5-4.0) gm/dl Albumin/Globulin Ratio 1.0 (0.9-2) Lipase 1013 H (73-393) U/L Urine Color Yellow Urine Appearance Clear (Clear) Urine pH 5.0 (4.5-7.5) Ur Specific [place] 1.013 (1.000-1.030) Urine Protein Negative (Negative) Urine Glucose (UA) Negative (Negative) Urine Ketones Negative (Negative) Urine Blood 1+ H (Negative) Urine Nitrite Negative (Negative) Urine Bilirubin Negative (Negative) Urine Urobilinogen Negative (Negative) Ur Leukocyte Esterase 2+ H (Negative) Urine WBC (Auto) >30 H (0-5) /hpf Urine RBC (Auto) 0-4 (0-4) /hpf U Hyaline Cast (Auto) 1-5 (0-5) /lpf U Epithel Cells (Auto) 10-20 H (0-5) /lpf Urine Bacteria (Auto) 1+ H (Negative) Blood Type Antibody Screen 05/29/18 05/29/18 05/29/18 Range/Units 15:25 15:25 15:25 WBC (4.8-10.8) K/uL RBC (4.2-5.4) M/uL Hgb (12.0-16.0) g/dL Hct (37-47) % MCV (80-100) fL MCH (25-34) pg MCHC (32-36) g/dL RDW Std Deviation (36.4-46.3) fL RDW Coeff of Robert (11.5-14.5) % Plt Count (130-400) K/uL MPV (7.4-10.4) fL Immature Gran % (Auto) % Neut % (Auto) % Lymph % (Auto) % [place] % (Auto) % Eos % (Auto) % Baso % (Auto) % Immature Gran # (Auto) (0.00-0.02) K/uL Neut # (Auto) (1.4-6.5) K/uL Lymph # (Auto) (1.2-3.4) K/uL [place] # (Auto) (0.11-0.59) K/uL Eos # (Auto) (0-0.5) K/uL Baso # (Auto) (0-0.2) K/uL Sodium 132 L (136-145) mmol/L Potassium 4.1 (3.5-5.1) mmol/L Chloride 102 (98-107) mmol/L Carbon Dioxide 24 (21-32) mmol/L Anion Gap 6.0 (3-11) BUN 41 H (7-18) mg/dl Creatinine 4.64 H* (0.6-1.2) mg/dl Est Cr Clr Drug Dosing 8.6 ml/min Est GFR ( Amer) 10.2 Est GFR (Non-Af Amer) 8.8 BUN/Creatinine Ratio 8.9 L (10-20) Glucose 92 (70-99) mg/dl Calcium 8.5 (8.5-10.1) mg/dl Total Bilirubin 0.3 (0.2-1) mg/dl Direct Bilirubin < 0.1 (0-0.2) mg/dl AST 79 H (15-37) U/L ALT 176 H (12-78) U/L Alkaline Phosphatase 135 H (45-117) U/L Total Protein 6.9 (6.4-8.2) gm/dl Albumin 3.4 (3.4-5.0) gm/dl Globulin (2.5-4.0) gm/dl Albumin/Globulin Ratio (0.9-2) Lipase Cancelled 2655 H (73-393) U/L Urine Color Urine Appearance (Clear) Urine pH (4.5-7.5) Ur Specific [place] (1.000-1.030) Urine Protein (Negative) Urine Glucose (UA) (Negative) Urine Ketones (Negative) Urine Blood (Negative) Urine Nitrite (Negative) Urine Bilirubin (Negative) Urine Urobilinogen (Negative) Ur Leukocyte Esterase (Negative) Urine WBC (Auto) (0-5) /hpf Urine RBC (Auto) (0-4) /hpf U Hyaline Cast (Auto) (0-5) /lpf U Epithel Cells (Auto) (0-5) /lpf Urine Bacteria (Auto) (Negative) Blood Type A Positive Antibody Screen NEGATIVE 05/29/18 Range/Units 15:25 WBC 7.16 (4.8-10.8) K/uL RBC 3.77 L (4.2-5.4) M/uL Hgb 11.2 L (12.0-16.0) g/dL Hct 32.7 L (37-47) % MCV 86.7 (80-100) fL MCH 29.7 (25-34) pg MCHC 34.3 (32-36) g/dL RDW Std Deviation 41.7 (36.4-46.3) fL RDW Coeff of Robert 13.0 (11.5-14.5) % Plt Count 268 (130-400) K/uL MPV 8.9 (7.4-10.4) fL Immature Gran % (Auto) 0.3 % Neut % (Auto) 66.3 % Lymph % (Auto) 18.2 % [place] % (Auto) 13.4 % Eos % (Auto) 1.5 % Baso % (Auto) 0.3 % Immature Gran # (Auto) 0.02 (0.00-0.02) K/uL Neut # (Auto) 4.75 (1.4-6.5) K/uL Lymph # (Auto) 1.30 (1.2-3.4) K/uL [place] # (Auto) 0.96 H (0.11-0.59) K/uL Eos # (Auto) 0.11 (0-0.5) K/uL Baso # (Auto) 0.02 (0-0.2) K/uL Sodium (136-145) mmol/L Potassium (3.5-5.1) mmol/L Chloride (98-107) mmol/L Carbon Dioxide (21-32) mmol/L Anion Gap (3-11) BUN (7-18) mg/dl Creatinine (0.6-1.2) mg/dl Est Cr Clr Drug Dosing ml/min Est GFR ( Amer) Est GFR (Non-Af Amer) BUN/Creatinine Ratio (10-20) Glucose (70-99) mg/dl Calcium (8.5-10.1) mg/dl Total Bilirubin (0.2-1) mg/dl Direct Bilirubin (0-0.2) mg/dl AST (15-37) U/L ALT (12-78) U/L Alkaline Phosphatase (45-117) U/L Total Protein (6.4-8.2) gm/dl Albumin (3.4-5.0) gm/dl Globulin (2.5-4.0) gm/dl Albumin/Globulin Ratio (0.9-2) Lipase (73-393) U/L Urine Color Urine Appearance (Clear) Urine pH (4.5-7.5) Ur Specific [place] (1.000-1.030) Urine Protein (Negative) Urine Glucose (UA) (Negative) Urine Ketones (Negative) Urine Blood (Negative) Urine Nitrite (Negative) Urine Bilirubin (Negative) Urine Urobilinogen (Negative) Ur Leukocyte Esterase (Negative) Urine WBC (Auto) (0-5) /hpf Urine RBC (Auto) (0-4) /hpf U Hyaline Cast (Auto) (0-5) /lpf U Epithel Cells (Auto) (0-5) /lpf Urine Bacteria (Auto) (Negative) Blood Type Antibody Screen (1) Pancreatitis Acute pancreatitis complication: unspecified Chronicity: acute Pancreatitis type: unspecified pancreatitis type Qualified Code(s): K85.90 - Acute pancreatitis without necrosis or infection, unspecified
--- NOTE | 2018-05-30 11:50 | Magnetic Resonance Report ---
MR MRCP CLINICAL HISTORY: elevated lipase, elevated LFTs, possibly gallstone pancreatitis. COMPARISON STUDY: Ultrasound and CT scan dated 05/29/2018 FINDINGS: There are clustered cysts versus a septated cyst involving the upper pole the right kidney measuring 8.5 cm in aggregate. There are clustered cysts within the left hepatic lobe measuring 2.6 cm in aggregate. The common bile duct measures 7 mm in maximal diameter. Pancreatic duct measures 3 mm. There is no intrahepatic biliary ductal dilatation. There are no ductal filling defects identified. There is narrowing of the common hepatic duct at the level of the hilum. No discrete mass is visualiz ed. No gallstones are visualized. IMPRESSION: 1. Nonspecific narrowing of the common hepatic duct at the level of the hilum. There is no significan t intrahepatic biliary ductal dilatation. No discrete masses are delineated. An ERCP could be obtaine d in follow-up as clinically appropriate. 2. No gallstones identified. No ductal filling defects identified. 3. 7 mm common bile duct. 3 mm pancreatic duct. 4. Septated left lobe hepatic cysts 5. Septated right renal cysts Electronically signed by: Ulises Rosenberg M.D. 05/30/2018 11:48 AM
[2018-05-30] MEDS ORDERED: HYDROmorphone INJ 0.5 MG/0.5 ML SYR IV PRN (12:08)
[2018-05-30] MEDS ORDERED: ACETAMINOPHEN 500 MG TAB PO SCH (13:00)
[2018-05-30] MEDS: cefTRIAXone SODIUM 1,000 MG in DEXTROSE 5% 50 ML IV SCH (13:16)
--- NOTE | 2018-05-30 16:16 | Hospitalist Progress Note ---
Date of Service May 30, 2018 Assessment & Plan (1) MAGGI (acute kidney injury): Likely secondary to dehydration with diarrhea, vomiting started 4 days ago. Poor oral intake and complicated by use of lisinopril IV fluids Monitor renal functions Avoid nephrotoxic agents, avoid NSAIDs, lisinopril Nephrology consult, appreciate recommendations. Discussed IVF with outside installation machinist and recommends LR @100ml/hr Renal function has been improving 4.90 on admission and 4.06 as of 05/30 We will continue current IV fluid (2) Pancreatitis: CT Abd/pelvis w/o contrast: There are no acute infectious or inflammatory findings identified in the abdomen or pelvis on this unenhanced examination Serum lipase is elevated to more than 2000 Has been n.p.o. Symptomatic treatment with Zofran prn nausea, morphine prn pain US RUQ-no gallstones or acute cholecystitis GI consult, appreciate recommendations MRCP:1. Nonspecific narrowing of the common hepatic duct at the level of the hilum. There is no significant intrahepatic biliary ductal dilatation. No discrete masses are delineated. An ERCP could be obtained in follow-up as clinically appropriate. 2. No gallstones identified. No ductal filling defects identified. 3. 7 mm common bile duct. 3 mm pancreatic duct. 4. Septated left lobe hepatic cysts 5. Septated right renal cysts Clinically improved (3) Elevated liver function tests: Bili: <0.1, AST: 79, ALT: 176, Alk Phos: 135, LFTs have been improved (4) UTI (urinary tract infection): Denies urinary symptoms UA: 1+blood, 2+leuk, >30 WBC, 10-20 epithel, 1+ bacteria -Rocephin -pending urine ; growing E. coli and sensitivities pending (5) HTN (hypertension): -Hold lisinopril with MAGGI -monitor BP, may need to consider different agent (6) Rectal bleeding: Reported hx bright red rectal bleeding with BM's x several months Hgb: 11 -monitor -GI consult, appreciate recommendations DVT Prophylaxis -SCDs for now with reported hx rectal bleeding Full Code as per discussion with pt Follows with Dr Khan for routine care Subjective 05/30 Patient was seen and examined in medical telemetry He complains of headache which is worse compared with her chronic headache at home No other associated symptoms with the headache Denies any significant abdominal pain ,nausea and/or vomiting Physical Exam Vital Signs (Past 24 Hours): Last Vital Signs Temp 36.6 C 05/30/18 15:51 Pulse 74 05/30/18 15:51 Resp 21 05/30/18 15:51 BP 174/73 H 05/30/18 15:51 Pulse Ox 94 05/30/18 15:51 Physical Exam: Lying in bed comfortably with some anxiety Constitutional: WD/WN, vitals as above Eyes: PERRL, conjunctivae normal, anicteric sclerae ENMT: external ear and nose normal, oropharynx normal Neck: trachea midline, no thyromegaly Respiratory: normal respiratory effort Auscultation: lungs clear to auscultation bilaterally Cardiovascular: Rate/Rhythm: regular rate and regular rhythm Heart Sounds: normal S1 and normal S2; no murmur Gastrointestinal (Abdomen): Inspection/Auscultation: abdomen normal to inspection and normal bowel sounds Percussion/Palpation: + abdomen tender (M ildly tender in the epigastrium) and abdomen soft Neurologic: Alert, awake and oriented x3. No focal neuro deficit Results & Data Laboratory Results Short CBC 05/30/18 Range/Units 07:08 WBC 5.44 (4.8-10.8) K/uL Hgb 10.3 L (12.0-16.0) g/dL Hct 30.6 L (37-47) % Plt Count 243 (130-400) K/uL BMP 05/29/18 05/30/18 15:25 07:08 Sodium 139 D Potassium 4.6 Chloride 112 H Carbon Dioxide 24 21 BUN 41 H 38 H Creatinine 4.64 H* 4.06 H D Glucose 92 82 Calcium 8.4 L Liver Function 05/29/18 05/30/18 Range/Units 15:25 07:08 Total Bilirubin 0.3 0.2 (0.2-1) mg/dl Direct Bilirubin < 0.1 < 0.1 (0-0.2) mg/dl AST 79 H 71 H (15-37) U/L ALT 176 H 147 H (12-78) U/L Alkaline Phosphatase 135 H 115 (45-117) U/L Albumin 3.4 2.9 L (3.4-5.0) gm/dl Medications Administered Current Inpatient Medications Acetaminophen (Tylenol) 1,000 mg PO Q6H PRN PRN Reason: Pain or Fever Stop: 06/29/18 12:59 Hydromorphone HCl (Dilaudid) 0.5 mg IV Q4H PRN PRN Reason: Pain Stop: 06/13/18 12:07 Lactated Ringer's (Lr) 1,000 mls @ 100 mls/hr IV .Q10H THOMPSON Stop: 06/28/18 20:34 Last Admin: 05/30/18 13:17 Dose: 100 mls/hr Documented by: Ceftriaxone Sodium 1,000 mg/ (Dextrose) 50 mls @ 100 mls/hr IV Q24H THOMPSON; Protocol Stop: 06/04/18 12:59 Last Infusion: 05/30/18 13:54 Dose: Infused Documented by: Morphine Sulfate (Morphine Sulfate) 2 mg IV Q4H PRN PRN Reason: Pain Stop: 06/12/18 17:42 Ondansetron HCl (Zofran) 4 mg IV Q6H PRN PRN Reason: Nausea Stop: 06/28/18 17:42 (1) Pancreatitis Acute pancreatitis complication: unspecified Chronicity: acute Pancreatitis type: unspecified pancreatitis type Qualified Code(s): K85.90 - Acute pancreatitis without necrosis or infection, unspecified (2) UTI (urinary tract infection) Hematuria presence: with hematuria Urinary tract infection type: site unspecified Qualified Code(s): N39.0 - Urinary tract infection, site not specified; R31.9 - Hematuria, unspecified
--- NOTE | 2018-05-30 18:32 | Nephrology Consultation ---
Date of Consultation May 30, 2018 Assessment & Plan (1) MAGGI (acute kidney injury): Patient with acute kidney injury likely due to prerenal azotemia in setting of diarrhea. She might progressed to ischemic ATN. She is making urine which is a good sign. Creatinine is also downtrending with IV fluids. Electrolytes are stable with no signs of volume overload. No indication for dialysis. Monitor renal function daily with BMP, monitor input output Continue Ringer's lactate at 150 mL/h. Avoid nephrotoxins unless lifesaving. (2) HTN (hypertension): Her blood pressure is high likely due to IV fluids. Agree with holding lisinopril. If systolic blood pressures above 170 and not due to pain, start amlodipine 5 mg daily. History of Present Illness Reason for Consultation: Acute kidney injury Requesting Physician: Araceli Garza MD Attending Physician: Juanita Mcqueen MD History of Present Illness This is a 73-year-old female with history of hypertension, endometrial cancer status post KIMBERLI and CKD stage III with baseline creatinine of 1 was admitted on 05/29/2018 with abdominal pain and acute kidney injury with creatinine of 4.9. She has been having diarrhea for several days and vomiting. She also had nausea with poor p.o. intake. We have been asked to evaluate her for etiology and management of her acute kidney injury. She denied NSAID use. She is being evaluated for pancreatitis given lipase of 2600. CT of the abdomen not suggestive of pancreatitis as well as MRCP. She has been receiving Ringer's lactate. Creatinine is slightly better today at 4. This morning she feels better denies any shortness of breath or lower extremity swelling. No urinary symptoms such as dysuria hematuria or frequency. She is n.p.o. Diarrhea has subsided. Allergies Allergy/AdvReac Type Severity Reaction Status Date / Time mivacurium Allergy Unknown HYPERVENTIL Verified 09/08/17 13:02 ATES azithromycin AdvReac Tachycardia Unverified 05/29/18 15:46 Home Medications Home Medications Medication Instructions Recorded Confirmed Type aspirin 81 mg PO DAILY 05/29/18 05/29/18 History lisinopril 10 mg PO TID 05/29/18 05/29/18 History Patient History Medical History History of hysterectomy (Chronic) CKD (chronic kidney disease), stage III (Chronic) HTN (hypertension) (Chronic) Bronchitis (Resolved) Family History Other Cancer Hypertension Social History Preferred Language: Ethiopian Communication Ability: Effective Cupola Operator Required: No Beliefs That Will Affect Care: None Current Living Situation: Alone Other Information That Helps Us Care for You: No Feels Safe at Home: Yes Safety Concerns: Feels Safe At This Time Smoking Status: Former smoker Hx Alcohol Use: No Hx Substance Use: No Review of Systems All other systems were reviewed and negative except as noted in HPI Physical Exam Vital Signs (Past 24 Hours): Last Vital Signs Temp 36.6 C 05/30/18 15:51 Pulse 74 05/30/18 15:51 Resp 21 05/30/18 15:51 BP 174/73 H 05/30/18 15:51 Pulse Ox 94 05/30/18 15:51 Physical Exam: General exam: Appears comfortable, no acute distress HEENT: Pupils are equal and reactive to light Neck: No JVD, neck is supple trachea is midline Respiratory system: Clear breath sounds bilaterally. Gastrointestinal: Abdomen is soft, non distended, non tender, bowel sounds are present CVS: Regular rate and rhythm. No murmurs, rubs or gallops Musculoskeletal: No joint or muscle tenderness Extremities: Non tender, no edema, peripheral pulses are present Neuro: Oriented, no tremors, no focal neurological deficits Skin: No rashes Results & Data Laboratory Results Potassium of 4.6, sodium 139, BUN 38, creatinine of 4
[2018-05-30] MEDS: ACETAMINOPHEN 500 MG TAB PO PRN (20:01)
[2018-05-31] MEDS: LACTATED RINGER'S 1,000 ML IV SCH ×3 (03:15→23:01)
[2018-05-31] MEDS: ACETAMINOPHEN 500 MG TAB PO PRN ×3 (04:24→20:56)
[2018-05-31 07:29] LABS: Basophils # (auto) 0.04 K/uL (0-0.2); Basophils % (auto) 0.8 %; Eosinophils # (auto) 0.19 K/uL (0-0.5); Eosinophils % (auto) 3.6 %; Hematocrit (blood only) 31.2 % (37-47); Hemoglobin 10.5 g/dL (12.0-16.0); Immature Granulocytes # (auto) 0.03 K/uL (0.00-0.02); Immature Granulocytes % (auto) 0.6 %; Lymphocytes # (auto) 1.22 K/uL (1.2-3.4); Lymphocytes % (auto) 23.3 %; Mean Corpuscular Hgb Conc 33.7 g/dL (32-36); Mean Corpuscular Volume 87.9 fL (80-100); Mean Platelet Volume 8.9 fL (7.4-10.4); Monocytes % (auto) 13.4 %; Neutrophils # (auto) 3.06 K/uL (1.4-6.5); Neutrophils % (auto) 58.3 %; Platelet Count 250 K/uL (130-400); RDW Coefficient of Variation 13.2 % (11.5-14.5); RDW Standard Deviation 42.9 fL (36.4-46.3); Red Blood Count 3.55 M/uL (4.2-5.4); White Blood Count 5.24 K/uL (4.8-10.8)
[2018-05-31 07:47] LABS: BUN Creatinine Ratio 10.1 (10-20); Calcium 8.5 mg/dl (8.5-10.1); Creatinine Clr Calc Pharmacy 12.3 ml/min; Est GFR (Non-African American) 13.8; Potassium 4.5 mmol/L (3.5-5.1)
[2018-05-31] MEDS: ONDANSETRON INJ 2 MG/ML 2 ML VIAL IV PRN ×2 (08:05→14:50)
--- NOTE | 2018-05-31 10:27 | Hospitalist Progress Note ---
Date of Service May 31, 2018 delayed entry date of service as noted above Assessment & Plan (1) MAGGI (acute kidney injury): Likely secondary to dehydration with diarrhea, vomiting started 4 days ago. Poor oral intake and complicated by use of lisinopril Nephrology has been consulted Patient on lactated Ringer's 100 cc/h Creatinine improved from 4 now down to 3 Good urine output Continue LR, monitor creatinine (2) Pancreatitis: CT Abd/pelvis w/o contrast: There are no acute infectious or inflammatory findings identified in the abdomen or pelvis on this unenhanced examination Serum lipase is elevated to more than 2000 Has been n.p.o. Symptomatic treatment with Zofran prn nausea, morphine prn pain US RUQ-no gallstones or acute cholecystitis GI consult, appreciate recommendations MRCP:1. Nonspecific narrowing of the common hepatic duct at the level of the hilum. There is no significant intrahepatic biliary ductal dilatation. No discrete masses are delineated. An ERCP could be obtained in follow-up as clinically appropriate. 2. No gallstones identified. No ductal filling defects identified. 3. 7 mm common bile duct. 3 mm pancreatic duct. 4. Septated left lobe hepatic cysts 5. Septated right renal cysts --Lipase normalized Abdominal pain improving Abdomen soft Clear liquids ordered (3) Elevated liver function tests: Bili: <0.1, AST: 79, ALT: 176, Alk Phos: 135, LFTs have been improved (4) UTI (urinary tract infection): Denies urinary symptoms UA: 1+blood, 2+leuk, >30 WBC, 10-20 epithel, 1+ bacteria -pending urine ; growing E. coli and sensitivities pending Continue ceftriaxone (5) HTN (hypertension): -Hold lisinopril with MAGGI -monitor BP (6) Rectal bleeding: Reported hx bright red rectal bleeding with BM's x several months Hgb: 11 Possibly from hemorrhoids Hemoglobin remained stable around 10 Continue outpatient GI follow-up Headache CT head negative for acute process Continue supportive care DVT Prophylaxis -SCDs for now in light of reported rectal bleeding Full Code as per discussion with pt Follows with Dr Khan for routine care Subjective Follow-up for pancreatitis, acute renal failure, UTI Seen resting in bed, not in distress States abdominal pain is improving, some mild nausea earlier in the day, improving Reports severe headache more frontal, denies neurologic symptoms No problems with voiding Denies other symptoms Physical Exam Vital Signs (Past 24 Hours): Last Vital Signs Temp 36.6 C 05/31/18 07:46 Pulse 79 05/31/18 07:46 Resp 20 05/31/18 07:46 BP 162/73 H 05/31/18 07:46 Pulse Ox 96 05/31/18 07:46 Physical Exam: General- oriented x 3, not in distress, speaks in sentences with no effort or accessory muscle use Eyes- anicteric Neck- no JVD Lungs- clear breath sounds bilaterally, no rales/wheezes Heart- normal rate, regular rhythm; no murmurs Abdomen- normal bowel sounds, nondistended, soft, mild epigastric tenderness Extremities- no pretibial edema, no calf tenderness Neuro- alert, oriented x 3; no gross focal neurologic deficits Skin- warm & dry Results & Data Laboratory Results All noted, reviewed (1) UTI (urinary tract infection) Hematuria presence: with hematuria Urinary tract infection type: site unspecified Qualified Code(s): N39.0 - Urinary tract infection, site not specified; R31.9 - Hematuria, unspecified (2) Pancreatitis Acute pancreatitis complication: unspecified Chronicity: acute Pancreatitis type: unspecified pancreatitis type Qualified Code(s): K85.90 - Acute pancreatitis without necrosis or infection, unspecified
--- NOTE | 2018-05-31 11:06 | CT Scan Report ---
CT SCAN OF THE BRAIN WITHOUT IV CONTRAST CLINICAL HISTORY: Headache. COMPARISON STUDY: MRI of the brain dated 04/30/2018. TECHNIQUE: Unenhanced axial CT scan of the brain is performed from the vertex to the skull base. A do se lowering technique was utilized adhering to the principles of ALARA. CT DOSE: 537.48 mGy.cm FINDINGS: Brain parenchyma: There are age-related involutional changes noting mild subcortical and periventric ular microangiopathic change. There is no hemorrhage, mass effect, or evidence of acute territorial i schemia by CT criteria. Mota-white matter differentiation is preserved. No extra-axial fluid collecti on is seen. Ventricles, sulci, cisterns: Prominent secondary to involutional change. Intracranial vasculature: There is atherosclerotic calcification of the cavernous carotid and vertebr al arteries. Calvarium: Unremarkable. Sinuses and mastoids: The visualized paranasal sinuses are clear. The mastoid air cells are well pneu matized. Orbits: The bony orbits are grossly intact. IMPRESSION: There is no hemorrhage, mass effect, or evidence of acute territorial ischemia by CT kenneth pal. Electronically signed by: Andrea Nelson M.D. 05/31/2018 11:05 AM
[2018-05-31] MEDS: METOCLOPRAMIDE HCL INJ 5 MG/ML 2 ML VIAL IV PRN ×2 (11:25→20:31)
--- NOTE | 2018-05-31 11:49 | Progress Note ---
Date of Service May 31, 2018 Subjective I have seen and examined the patient today, she feels better, c/o headache. Her abdominal pain improved, still has some nausea but no vomiting. MRCP showed no CBD stones or gallstones. CBD of 7mm, some nonspecific narrowing at the hepatic hilum but no intrahepatic dilation. Lipase is normal today and MAGGI is improving. H/H stable. LFTs were trending down. Stool work up is negative. On exam abdomen is soft. Improving acute pancreatitis, unclear etiology, She is planned for EUS as OP and also needs Colonoscopy as OP due to rectal bleeding. Recommend: Advance to clear liquids now then full liquid tonight. If continue to improve then regular diet tomorrow. Add on LFTs to BMP. Management of UTI per primary team. Cut down on Narcs. PRN antiemetics. Consider changing Lisinopril to another antihypertensive in the future if EUS is normal as this can cause pancreatitis. May need ERCP based on EUS as OP. Recall us if needed. Physical Exam Vital Signs (Past 24 Hours): Last Vital Signs Temp 36.6 C 05/31/18 07:46 Pulse 79 05/31/18 07:46 Resp 20 05/31/18 07:46 BP 162/73 H 05/31/18 07:46 Pulse Ox 96 05/31/18 07:46
[2018-05-31] MEDS: cefTRIAXone SODIUM 1,000 MG in DEXTROSE 5% 50 ML IV SCH (12:32)
[2018-05-31 12:33] LABS: Alanine Aminotransferase 128 U/L (12-78); Albumin Level 2.9 gm/dl (3.4-5.0); Alkaline Phosphatase 114 U/L (45-117); Aspartate Aminotransferase 60 U/L (15-37); Bilirubin Direct < 0.1 mg/dl (0-0.2); Bilirubin,Total 0.2 mg/dl (0.2-1); Total Protein 5.9 gm/dl (6.4-8.2)
[2018-06-01] MEDS ORDERED: AMLODIPINE BESYLATE 5 MG TAB PO SCH (05:15)
[2018-06-01 06:29] LABS: Basophils # (auto) 0.06 K/uL (0-0.2); Eosinophils # (auto) 0.31 K/uL (0-0.5); Eosinophils % (auto) 5.4 %; Hematocrit (blood only) 31.2 % (37-47); Hemoglobin 10.5 g/dL (12.0-16.0); Immature Granulocytes # (auto) 0.04 K/uL (0.00-0.02); Immature Granulocytes % (auto) 0.7 %; Lymphocytes # (auto) 1.46 K/uL (1.2-3.4); Lymphocytes % (auto) 25.2 %; Mean Corpuscular Hgb Conc 33.7 g/dL (32-36); Mean Corpuscular Volume 88.9 fL (80-100); Mean Platelet Volume 8.8 fL (7.4-10.4); Monocytes % (auto) 15.5 %; Neutrophils # (auto) 3.02 K/uL (1.4-6.5); Neutrophils % (auto) 52.2 %; Platelet Count 267 K/uL (130-400); RDW Coefficient of Variation 13.4 % (11.5-14.5); RDW Standard Deviation 43.6 fL (36.4-46.3); Red Blood Count 3.51 M/uL (4.2-5.4); White Blood Count 5.79 K/uL (4.8-10.8)
[2018-06-01 06:58] LABS: Calcium 8.4 mg/dl (8.5-10.1); Creatinine Clr Calc Pharmacy 15.5 ml/min; Est GFR (African American) 20.5; Est GFR (Non-African American) 17.7; Potassium 4.2 mmol/L (3.5-5.1)
[2018-06-01] MEDS: LACTATED RINGER'S 1,000 ML IV SCH ×2 (08:57→17:55)
[2018-06-01] MEDS ORDERED: AMLODIPINE BESYLATE 5 MG TAB PO ONE (12:58)
[2018-06-01] MEDS: cefTRIAXone SODIUM 1,000 MG in DEXTROSE 5% 50 ML IV SCH (13:11)
--- NOTE | 2018-06-01 13:12 | Hospitalist Progress Note ---
Date of Service June 01, 2018 Assessment & Plan (1) MAGGI (acute kidney injury): Likely secondary to dehydration with diarrhea, vomiting started 4 days ago. Poor oral intake and complicated by use of lisinopril IV fluids Monitor renal functions Avoid nephrotoxic agents, avoid NSAIDs, lisinopril Nephrology consult, appreciate recommendations. Discussed IVF with net solutions architect and recommends LR @100ml/hr Renal function has been improving 4.90 on admission and 4.06 as of 05/30 We will continue current IV fluid (2) Pancreatitis: CT Abd/pelvis w/o contrast: There are no acute infectious or inflammatory findings identified in the abdomen or pelvis on this unenhanced examination Serum lipase is elevated to more than 2000 Has been n.p.o. Symptomatic treatment with Zofran prn nausea, morphine prn pain US RUQ-no gallstones or acute cholecystitis GI consult, appreciate recommendations MRCP:1. Nonspecific narrowing of the common hepatic duct at the level of the hilum. There is no significant intrahepatic biliary ductal dilatation. No discrete masses are delineated. An ERCP could be obtained in follow-up as clinically appropriate. 2. No gallstones identified. No ductal filling defects identified. 3. 7 mm common bile duct. 3 mm pancreatic duct. 4. Septated left lobe hepatic cysts 5. Septated right renal cysts Clinically improved (3) Elevated liver function tests: Bili: <0.1, AST: 79, ALT: 176, Alk Phos: 135, LFTs have been improved (4) UTI (urinary tract infection): Denies urinary symptoms UA: 1+blood, 2+leuk, >30 WBC, 10-20 epithel, 1+ bacteria -Rocephin -pending urine ; growing E. coli and sensitivities pending (5) HTN (hypertension): -Hold lisinopril with MAGGI -monitor BP, may need to consider different agent (6) Rectal bleeding: Reported hx bright red rectal bleeding with BM's x several months Hgb: 11 -monitor -GI consult, appreciate recommendations DVT Prophylaxis -SCDs for now with reported hx rectal bleeding Full Code as per discussion with pt Follows with Dr Khan for routine care Subjective 05/30 Patient was seen and examined in medical telemetry He complains of headache which is worse compared with her chronic headache at home No other associated symptoms with the headache Denies any significant abdominal pain ,nausea and/or vomiting Physical Exam Vital Signs (Past 24 Hours): Last Vital Signs Temp 36.9 C 06/01/18 12:00 Pulse 72 06/01/18 12:00 Resp 20 06/01/18 12:00 BP 161/79 H 06/01/18 12:00 Pulse Ox 98 06/01/18 12:00 (1) Pancreatitis Acute pancreatitis complication: unspecified Chronicity: acute Pancreatitis type: unspecified pancreatitis type Qualified Code(s): K85.90 - Acute p ancreatitis without necrosis or infection, unspecified (2) UTI (urinary tract infection) Hematuria presence: with hematuria Urinary tract infection type: site unspecified Qualified Code(s): N39.0 - Urinary tract infection, site not specified; R31.9 - Hematuria, unspecified
[2018-06-01 13:58] LABS: Alanine Aminotransferase 115 U/L (12-78); Alkaline Phosphatase 110 U/L (45-117); Aspartate Aminotransferase 44 U/L (15-37); Bilirubin Direct < 0.1 mg/dl (0-0.2); Bilirubin,Total 0.2 mg/dl (0.2-1)
--- NOTE | 2018-06-01 17:22 | Hospitalist Progress Note ---
Date of Service June 01, 2018 Assessment & Plan (1) MAGGI (acute kidney injury): Likely secondary to dehydration with diarrhea, vomiting started 4 days ago. Poor oral intake and complicated by use of lisinopril Nephrology has been consulted Patient on lactated Ringer's 100 cc/h Creatinine improved from 4 now down to 2 Good urine output Continue LR, monitor creatinine (2) Pancreatitis: CT Abd/pelvis w/o contrast: There are no acute infectious or inflammatory findings identified in the abdomen or pelvis on this unenhanced examination Serum lipase is elevated to more than 2000 Has been n.p.o. Symptomatic treatment with Zofran prn nausea, morphine prn pain US RUQ-no gallstones or acute cholecystitis GI consult, appreciate recommendations MRCP:1. Nonspecific narrowing of the common hepatic duct at the level of the hilum. There is no significant intrahepatic biliary ductal dilatation. No discrete masses are delineated. An ERCP could be obtained in follow-up as clinically appropriate. 2. No gallstones identified. No ductal filling defects identified. 3. 7 mm common bile duct. 3 mm pancreatic duct. 4. Septated left lobe hepatic cysts 5. Septated right renal cysts --Lipase normalized Abdominal pain continues to improve Abdomen soft Clear liquids advanced to full liquid diet Advance to soft diet tomorrow Follow-up with GI clinic closely Will need EUS as an outpatient , ERCP based on EUS results (3) Elevated liver function tests: Bili: <0.1, AST: 79, ALT: 176, Alk Phos: 135, LFTs have been improved (4) UTI (urinary tract infection): Denies urinary symptoms UA: 1+blood, 2+leuk, >30 WBC, 10-20 epithel, 1+ bacteria -pending urine ; growing E. coli and sensitivities pending -- Continue ceftriaxone Day 3/ (5) HTN (hypertension): -Hold lisinopril with MAGGI -Amlodipine 5 mg started -monitor BP (6) Rectal bleeding: Reported hx bright red rectal bleeding with BM's x several months Hgb: 11 Possibly from hemorrhoids Hemoglobin remained stable around 10 No recurrence Continue outpatient GI follow-up Headache CT head negative for acute process Continue supportive care Resolved DVT Prophylaxis -SCDs for now in light of reported rectal bleeding Encouraged to ambulate frequently Full Code Follows with Dr Khan for routine care Will need close outpatient GI follow-up Subjective Follow-up for acute meningitis, acute renal failure Seen resting in bed, comfortable, not in distress, in good spirits Patient continues to feel improved No abdominal pain, no nausea No problems urinating Headache resolved No other symptoms Physical Exam Vital Signs (Past 24 Hours): Last Vital Signs Temp 36.8 C 06/01/18 16:00 Pulse 78 06/01/18 16:00 Resp 18 06/01/18 16:00 BP 155/76 H 06/01/18 16:00 Pulse Ox 99 06/01/18 16:00 Physical Exam: General- oriented x 3, not in distress, speaks in sentences with no effort or accessory muscle use Eyes- anicteric Neck- no JVD Lungs- clear BS, crackles, wheezing bilaterally Heart- normal rate, regular rhythm; no murmurs Abdomen- normal bowel sounds, nondistended, soft, nontender Extremities- no pretibial edema, no calf tenderness Neuro- alert, oriented x 3; no gross focal neurologic deficits Skin- warm & dry Results & Data Laboratory Results Laboratory Results - last 24 hr 06/01/18 06/01/18 06/01/18 05:55 05:55 05:55 WBC 5.79 RBC 3.51 L Hgb 10.5 L Hct 31.2 L MCV 88.9 MCH 29.9 MCHC 33.7 RDW Std Deviation 43.6 RDW Coeff of Robert 13.4 Plt Count 267 MPV 8.8 Immature Gran % (Auto) 0.7 Neut % (Auto) 52.2 Lymph % (Auto) 25.2 [place] % (Auto) 15.5 Eos % (Auto) 5.4 Baso % (Auto) 1.0 Immature Gran # (Auto) 0.04 H Neut # (Auto) 3.02 Lymph # (Auto) 1.46 [place] # (Auto) 0.90 H Eos # (Auto) 0.31 Baso # (Auto) 0.06 Sodium 139 Potassium 4.2 Chloride 110 H Carbon Dioxide 22 Anion Gap 7.0 BUN 29 H Creatinine 2.60 H D Est Cr Clr Drug Dosing 15.5 Est GFR ( Amer) 20.5 Est GFR (Non-Af Amer) 17.7 BUN/Creatinine Ratio 11.0 Glucose 89 Calcium 8.4 L Total Bilirubin 0.2 Direct Bilirubin < 0.1 AST 44 H ALT 115 H Alkaline Phosphatase 110 Total Protein 6.0 L Albumin 3.0 L (1) Pancreatitis Acute pancreatitis complication: unspecified Chronicity: acute Pancreatitis type: unspecified pancreatitis type Qualified Code(s): K85.90 - Acute pancreatitis without necrosis or infection, unspecified (2) UTI (urinary tract infection) Hematuria presence: with hematuria Urinary tract infection type: site unspecified Qualified Code(s): N39.0 - Urinary tract infection, site not specified; R31.9 - Hematuria, unspecified
[2018-06-01] MEDS: ACETAMINOPHEN 500 MG TAB PO PRN (17:55)
[2018-06-01] MEDS ORDERED: LORazepam 0.5 MG TAB PO STA (23:08)
[2018-06-02] MEDS: LACTATED RINGER'S 1,000 ML IV SCH ×2 (04:17→14:21)
[2018-06-02] MEDS: ACETAMINOPHEN 500 MG TAB PO PRN ×3 (04:19→18:09)
[2018-06-02 07:14] LABS: Basophils # (auto) 0.05 K/uL (0-0.2); Basophils % (auto) 0.8 %; Eosinophils # (auto) 0.31 K/uL (0-0.5); Eosinophils % (auto) 5.2 %; Hematocrit (blood only) 29.8 % (37-47); Immature Granulocytes # (auto) 0.03 K/uL (0.00-0.02); Immature Granulocytes % (auto) 0.5 %; Lymphocytes # (auto) 1.94 K/uL (1.2-3.4); Lymphocytes % (auto) 32.5 %; Mean Corpuscular Hgb Conc 33.6 g/dL (32-36); Mean Corpuscular Volume 88.7 fL (80-100); Mean Platelet Volume 8.7 fL (7.4-10.4); Monocytes # (auto) 0.81 K/uL (0.11-0.59); Monocytes % (auto) 13.6 %; Neutrophils # (auto) 2.83 K/uL (1.4-6.5); Neutrophils % (auto) 47.4 %; Platelet Count 263 K/uL (130-400); RDW Coefficient of Variation 13.5 % (11.5-14.5); RDW Standard Deviation 43.9 fL (36.4-46.3); Red Blood Count 3.36 M/uL (4.2-5.4); White Blood Count 5.97 K/uL (4.8-10.8)
[2018-06-02 07:33] LABS: Alanine Aminotransferase 105 U/L (12-78); Albumin Level 2.8 gm/dl (3.4-5.0); Aspartate Aminotransferase 64 U/L (15-37); BUN Creatinine Ratio 12.3 (10-20); Bilirubin Direct < 0.1 mg/dl (0-0.2); Blood Urea Nitrogen 21 mg/dl (7-18); Calcium 8.4 mg/dl (8.5-10.1); Carbon Dioxide 23 mmol/L (21-32); Chloride 111 mmol/L (98-107); Creatinine Clr Calc Pharmacy 23.1 ml/min; Est GFR (African American) 33.4; Est GFR (Non-African American) 28.8; Glucose 82 mg/dl (70-99); Sodium 142 mmol/L (136-145)
[2018-06-02 07:36] LABS: Alkaline Phosphatase 100 U/L (45-117); Bilirubin,Total 0.2 mg/dl (0.2-1); Total Protein 5.7 gm/dl (6.4-8.2)
--- NOTE | 2018-06-02 07:56 | Nephrology Progress Note ---
Date of Service June 02, 2018 Assessment & Plan (1) MAGGI (acute kidney injury): prerenal azotemia in setting of diarrhea. not oliguric and renal function improving. Electrolytes are stable with no signs of volume overload. her baseline creatinine is 1.1; presenting creatinine was 4.9 on 05/29; improving clinically to 1.7 today Monitor renal function daily with BMP, monitor input output Continue Ringer's lactate at 100 mL/h >> done through day but w/ ongoing htn and consideration for d/c soon, will stop this evening Avoid nephrotoxins unless lifesaving. AT D/C, recommend >>avoid all nsaids in ANDUJAR mgt now and after d/c >> ensure she has viable ANDUJAR mgt plan >> hold OP lisinopril at d/c; cont amlodipine ->check weekly bmp x 4 wks; recommend renal eval in CKD clinic in 4-6 wks<< have asked my staff to arrange labs/ ckd clinic appt will sign off pls call if ? (2) HTN (hypertension): Her blood pressure is high likely due to IV fluids. Agree with holding lisinopril. If systolic blood pressures above 170 and not due to pain, start amlodipine 5 mg daily. Subjective seen on rounds this am w/ family / friend at bedside; some ANDUJAR at times; no n/v; about to eat breakfast Physical Exam Vital Signs (Past 24 Hours): Last Vital Signs Temp 36.8 C 06/02/18 04:15 Pulse 81 06/02/18 04:15 Resp 18 06/02/18 04:15 BP 177/84 H 06/02/18 04:15 Pulse Ox 95 06/02/18 04:15 Constitutional: well developed and + thin on RA Eyes: EOM intact bilaterally ENMT: Ears: no external ear abnormality Nose: no external nose abnormality Mouth: + dry oral mucous membranes Neck: no nuchal rigidity Respiratory: normal respiratory effort Auscultation: + diminished lung sounds Cardiovascular: RRR, no murmur, no edema Gastrointestinal (Abdomen): Inspection/Auscultation: normal bowel sounds Percussion/Palpation: abdomen soft; abdomen nontender Musculoskeletal: Extremities: strength 5/5 throughout Skin: no rashes, warm and dry Neurologic: duenas, fluent speech, no tremor Results & Data Laboratory Results Abnormal lab results 06/02/18 06/02/18 Range/Units 06:54 06:54 RBC 3.36 L (4.2-5.4) M/uL Hgb 10.0 L (12.0-16.0) g/dL Hct 29.8 L (37-47) % Immature Gran # (Auto) 0.03 H (0.00-0.02) K/uL [place] # (Auto) 0.81 H (0.11-0.59) K/uL Chloride 111 H (98-107) mmol/L BUN 21 H (7-18) mg/dl Creatinine 1.74 H D (0.6-1.2) mg/dl Calcium 8.4 L (8.5-10.1) mg/dl AST 64 H (15-37) U/L ALT 105 H (12-78) U/L Total Protein 5.7 L (6.4-8.2) gm/dl Albumin 2.8 L (3.4-5.0) gm/dl
[2018-06-02] MEDS: AMLODIPINE BESYLATE 5 MG TAB PO SCH (07:57)
[2018-06-02] MEDS: cefTRIAXone SODIUM 1,000 MG in DEXTROSE 5% 50 ML IV SCH (12:31)
--- NOTE | 2018-06-02 15:03 | Hospitalist Progress Note ---
Date of Service June 02, 2018 Assessment & Plan (1) MAGGI (acute kidney injury): Likely secondary to dehydration with diarrhea, vomiting started 4 days ago. Poor oral intake and complicated by use of lisinopril IV fluids Monitor renal functions Avoid nephrotoxic agents, avoid NSAIDs, lisinopril Nephrology consult, appreciate recommendations. Discussed IVF with orthodontic assistant and recommends LR @100ml/hr Renal function has been improving 4.90 on admission and 4.06 as of 05/30 We will continue current IV fluid Kidney function has improved a lot Appreciate nephrology input and recommendation Will have BMP checked tomorrow and likely home after the (2) Pancreatitis: CT Abd/pelvis w/o contrast: There are no acute infectious or inflammatory findings identified in the abdomen or pelvis on this unenhanced examination Serum lipase is elevated to more than 2000 Has been n.p.o. Symptomatic treatment with Zofran prn nausea, morphine prn pain US RUQ-no gallstones or acute cholecystitis GI consult, appreciate recommendations MRCP:1. Nonspecific narrowing of the common hepatic duct at the level of the hilum. There is no significant intrahepatic biliary ductal dilatation. No discrete masses are delineated. An ERCP could be obtained in follow-up as clin ically appropriate. 2. No gallstones identified. No ductal filling defects identified. 3. 7 mm common bile duct. 3 mm pancreatic duct. 4. Septated left lobe hepatic cysts 5. Septated right renal cysts Clinically improved Has been tolerating regular diet Has been ambulating well (3) Elevated liver function tests: Bili: <0.1, AST: 79, ALT: 176, Alk Phos: 135, LFTs have been improved (4) UTI (urinary tract infection): Denies urinary symptoms UA: 1+blood, 2+leuk, >30 WBC, 10-20 epithel, 1+ bacteria -Rocephin -pending urine ; growing E. coli and pansensitive -We will continue ceftriaxone for now (5) HTN (hypertension): -Hold lisinopril with MAGGI -monitor BP, may need to consider different agent (6) Rectal bleeding: Reported hx bright red rectal bleeding with BM's x several months Hgb: 11 -monitor -GI consult, appreciate recommendations -EUS and colonoscopy as an outpatient DVT Prophylaxis -SCDs for now with reported hx rectal bleeding Full Code as per discussion with pt Follows with Dr Khan for routine care Subjective 05/30 Patient was seen and examined in medical telemetry He complains of headache which is worse compared with her chronic headache at h ome No other associated symptoms with the headache Denies any significant abdominal pain ,nausea and/or vomiting 06/02 The patient was seen and examined the medical unit She has been feeling a lot better and tolerating regular diet Her kidney function is improved and is still getting intravenous fluids Likely to be discharged tomorrow Physical Exam Vital Signs (Past 24 Hours): Last Vital Signs Temp 36.9 C 06/02/18 11:45 Pulse 84 06/02/18 11:45 Resp 18 06/02/18 11:45 BP 152/75 H 06/02/18 11:45 Pulse Ox 98 06/02/18 11:45 Physical Exam: Sitting on bed without any distress Constitutional: WD/WN, vitals as above Eyes: PERRL, conjunctivae normal, anicteric sclerae ENMT: external ear and nose normal, oropharynx normal Neck: trachea midline, no thyromegaly Respiratory: normal respiratory effort Auscultation: lungs clear to auscultation bilaterally Cardiovascular: Rate/Rhythm: regular rate and regular rhythm Heart Sounds: normal S1 and normal S2; no murmur Gastrointestinal (Abdomen): Inspection/Auscultation: abdomen normal to inspection and normal bowel sounds Percussion/Palpation: abdomen soft; abdomen nontender Musculoskeletal: No acute arthritis knee joint Neurologic: Alert, awake and oriented x3 Results & Data Laboratory Results Short CBC 06/02/18 Range/Units 06:54 WBC 5.97 (4.8-10.8) K/uL Hgb 10.0 L (12.0-16.0) g/dL Hct 29.8 L (37-47) % Plt Count 263 (130-400) K/uL BMP 06/02/18 06:54 Sodium 142 Potassium 4.0 Chloride 111 H Carbon Dioxide 23 BUN 21 H Creatinine 1.74 H D Glucose 82 Calcium 8.4 L Liver Function 06/02/18 Range/Units 06:54 Total Bilirubin 0.2 (0.2-1) mg/dl Direct Bilirubin < 0.1 (0-0.2) mg/dl AST 64 H (15-37) U/L ALT 105 H (12-78) U/L Alkaline Phosphatase 100 (45-117) U/L Albumin 2.8 L (3.4-5.0) gm/dl Medications Administered Current Inpatient Medications Acetaminophen (Tylenol) 1,000 mg PO Q6H PRN PRN Reason: Pain or Fever Stop: 06/29/18 12:59 Last Admin: 06/02/18 11:51 Dose: 1,000 mg Documented by: Amlodipine Besylate (Norvasc) 5 mg PO QAM THOMPSON Stop: 07/02/18 08:59 Last Admin: 06/02/18 07:57 Dose: 5 mg Documented by: Lactated Ringer's (Lr) 1,000 mls @ 100 mls/hr IV .Q10H THOMPSON Stop: 06/28/18 20:34 Last Admin: 06/02/18 14:21 Dose: 100 mls/hr Documented by: Ceftriaxone Sodium 1,000 mg/ (Dextrose) 50 mls @ 100 mls/hr IV Q24H THOMPSON; Protocol Stop: 06/04/18 12:59 Last Infusion: 06/02/18 13:27 Dose: Infused Documented by: Metoclopramide HCl (Reglan) 5 mg IV Q6H PRN PRN Reason: Nausea Stop: 06/30/18 11:07 Last Admin: 05/31/18 20:31 Dose: 5 mg Documented by: Ondansetron HCl (Zofran) 4 mg IV Q6H PRN PRN Reason: Nausea Stop: 06/28/18 17:42 Last Admin: 05/31/18 14:50 Dose: 4 mg Documented by: (1) Pancreatitis Acute pancreatitis complication: unspecified Chronicity: acute Pancreatitis type: unspecified pancreatitis type Qualified Code(s): K85.90 - Acute pancreatitis without necrosis or infection, unspecified (2) UTI (urinary tract infection) Hematuria presence: with hematuria Urinary tract infection type: site unspecified Qualified Code(s): N39.0 - Urinary tract infection, site not specified; R31.9 - Hematuria, unspecified
[2018-06-02] MEDS ORDERED: LORazepam 0.5 MG TAB PO STA (21:41)
[2018-06-03 08:24] LABS: Basophils # (auto) 0.06 K/uL (0-0.2); Basophils % (auto) 1.1 %; Eosinophils # (auto) 0.39 K/uL (0-0.5); Eosinophils % (auto) 7.2 %; Hematocrit (blood only) 31.7 % (37-47); Hemoglobin 10.5 g/dL (12.0-16.0); Immature Granulocytes # (auto) 0.03 K/uL (0.00-0.02); Immature Granulocytes % (auto) 0.6 %; Lymphocytes # (auto) 1.52 K/uL (1.2-3.4); Lymphocytes % (auto) 28.2 %; Mean Corpuscular Hgb Conc 33.1 g/dL (32-36); Mean Corpuscular Volume 89.3 fL (80-100); Mean Platelet Volume 8.9 fL (7.4-10.4); Monocytes # (auto) 0.74 K/uL (0.11-0.59); Monocytes % (auto) 13.7 %; Neutrophils # (auto) 2.65 K/uL (1.4-6.5); Neutrophils % (auto) 49.2 %; Platelet Count 305 K/uL (130-400); RDW Coefficient of Variation 13.6 % (11.5-14.5); RDW Standard Deviation 44.8 fL (36.4-46.3); Red Blood Count 3.55 M/uL (4.2-5.4); White Blood Count 5.39 K/uL (4.8-10.8)
[2018-06-03] MEDS: AMLODIPINE BESYLATE 5 MG TAB PO SCH (08:31)
[2018-06-03 08:48] LABS: Alanine Aminotransferase 144 U/L (12-78); Albumin Level 3.3 gm/dl (3.4-5.0); Bilirubin Direct < 0.1 mg/dl (0-0.2); Blood Urea Nitrogen 20 mg/dl (7-18); Calcium 8.5 mg/dl (8.5-10.1); Carbon Dioxide 25 mmol/L (21-32); Chloride 108 mmol/L (98-107); Creatinine Clr Calc Pharmacy 26.6 ml/min; Est GFR (African American) 39.6; Est GFR (Non-African American) 34.2; Glucose 96 mg/dl (70-99); Sodium 141 mmol/L (136-145)
[2018-06-03 08:53] LABS: Alkaline Phosphatase 109 U/L (45-117); Aspartate Aminotransferase 103 U/L (15-37); Bilirubin,Total 0.2 mg/dl (0.2-1); Total Protein 6.5 gm/dl (6.4-8.2)
--- NOTE | 2018-06-03 11:14 | Hospitalist Progress Note ---
Date of Service June 03, 2018 Assessment & Plan (1) MAGGI (acute kidney injury): Likely secondary to dehydration with diarrhea, vomiting started 4 days ago. Poor oral intake and complicated by use of lisinopril IV fluids Monitor renal functions Avoid nephrotoxic agents, avoid NSAIDs, lisinopril Nephrology consult, appreciate recommendations. Discussed IVF with environmental associate and recommends LR @100ml/hr Renal function has been improving 4.90 on admission and 4.06 as of 05/30 We will continue current IV fluid Kidney function has improved a lot Appreciate nephrology input and recommendation Creatinine is much improved at 1.55 today She was advised to continue to drink more fluid at home We will have nephrology appointment as an outpatient (2) Pancreatitis: CT Abd/pelvis w/o contrast: There are no acute infectious or inflammatory findings identified in the abdomen or pelvis on this unenhanced examination Serum lipase is elevated to more than 2000 Has been n.p.o. Symptomatic treatment with Zofran prn nausea, morphine prn pain US RUQ-no gallstones or acute cholecystitis GI consult, appreciate recommendations MRCP:1. Nonspecific narrowing of the common hepatic duct at the level of the hilum. There is no significant intrahepatic biliary ductal dilatation. No discrete masses are delineated. An ERCP could be obtained in follow-up as clinically appropriate. 2. No gallstones identified. No ductal filling defects identified. 3. 7 mm common bile duct. 3 mm pancreatic duct. 4. Septated left lobe hepatic cysts 5. Septated right renal cysts Clinically improved Has been tolerating regular diet Has been ambulating well No acute abdominal pain and/or nausea vomiting (3) Elevated liver function tests: Bili: <0.1, AST: 79, ALT: 176, Alk Phos: 135, LFTs have been improved and normalized (4) UTI (urinary tract infection): Denies urinary symptoms UA: 1+blood, 2+leuk, >30 WBC, 10-20 epithel, 1+ bacteria -Rocephin -pending urine ; growing E. coli and pansensitive -We will continue ceftriaxone for now -Antibiotic course is done (5) HTN (hypertension): -Hold lisinopril with MAGGI -monitor BP, may need to consider different agent -We will not give any more lisinopril for acute kidney failure -Continue with amlodipine as an outpatient (6) Rectal bleeding: Reported hx bright red rectal bleeding with BM's x several months Hgb: 11 -monitor -GI consult, appreciate recommendations -EUS and colonoscopy as an outpatient-GI will arrange DVT Prophylaxis -SCDs for now with reported hx rectal bleeding Full Code as per discussion with pt Follows with Dr Khan for routine care Subjective 05/30 Patient was seen and examined in medical telemetry He complains of headache which is worse compared with her chronic headache at home No other associated symptoms with the headache Denies any significant abdominal pain ,nausea and/or vomiting 06/02 The patient was seen and examined the medical unit She has been feeling a lot better and tolerating regular diet Her kidney function is improved and is still getting intravenous fluids Likely to be discharged tomorrow 06/03 Patient was seen and examined in medical telemetry unit She is very anxious but denies any significant symptoms No abdominal pain, nausea or vomiting She denies any other symptoms Physical Exam Vital Signs (Past 24 Hours): Last Vital Signs Temp 36.8 C 06/03/18 08:00 Pulse 77 06/03/18 08:00 Resp 16 06/03/18 08:00 BP 163/80 H 06/03/18 08:00 Pulse Ox 95 06/03/18 08:00 Physical Exam: Anxious but no apparent distress at rest Constitutional: WD/WN, vitals as above Eyes: PERRL, conjunctivae normal, anicteric sclerae ENMT: external ear and nose normal, oropharynx normal Neck: trachea midline, no thyromegaly Respiratory: normal respiratory effort Auscultation: lungs clear to auscultation bilaterally Cardiovascular: Rate/Rhythm: regular rate and regular rhythm Heart Sounds: normal S1 and normal S2; no murmur Gastrointestinal (Abdomen): Inspection/Auscultation: abdomen normal to inspection and normal bowel sounds Percussion/Palpation: abdomen soft; abdomen nontender Musculoskeletal: No acute arthritis involving any of the joints Neurologic: Alert, awake and oriented x3. No focal sensory or motor deficit appreciated Results & Data Laboratory Results Short CBC 06/03/18 Range/Units 07:59 WBC 5.39 (4.8-10.8) K/uL Hgb 10.5 L (12.0-16.0) g/dL Hct 31.7 L (37-47) % Plt Count 305 (130-400) K/uL BMP 06/03/18 07:59 Sodium 141 Potassium 4.0 Chloride 108 H Carbon Dioxide 25 BUN 20 H Creatinine 1.51 H Glucose 96 Calcium 8.5 Liver Function 06/03/18 Range/Units 07:59 Total Bilirubin 0.2 (0.2-1) mg/dl Direct Bilirubin < 0.1 (0-0.2) mg/dl AST 103 H (15-37) U/L ALT 144 H (12-78) U/L Alkaline Phosphatase 109 (45-117) U/L Albumin 3.3 L (3.4-5.0) gm/dl Medications Administered Current Inpatient Medications Acetaminophen (Tylenol) 1,000 mg PO Q6H PRN PRN Reason: Pain or Fever Stop: 06/29/18 12:59 Last Admin: 06/02/18 18:09 Dose: 1,000 mg Documented by: Amlodipine Besylate ([facility]asc) [facility] Stop: 07/02/18 08:59 Last Admin: 06/03/18 08:31 Dose: 5 mg Documented by: Ceftriaxone Sodium 1,000 mg/ (Dextrose) 50 mls @ 100 mls/hr IV Q24H [facility]; Protocol Stop: 06/04/18 12:59 Last Infusion: 06/02/18 13:27 Dose: Infused Documented by: Metoclopramide HCl (Reglan) 5 mg IV Q6H PRN PRN Reason: Nausea Stop: 06/30/18 11:07 Last Admin: 05/31/18 20:31 Dose: 5 mg Documented by: Ondansetron HCl (Zofran) 4 mg IV Q6H PRN PRN Reason: Nausea Stop: 06/28/18 17:42 Last Admin: 05/31/18 14:50 Dose: 4 mg Documented by: (1) Pancreatitis Acute pancreatitis complication: unspecified Chronicity: acute Pancreatitis type: unspecified pancreatitis type Qualified Code(s): K85.90 - Acute pancreatitis without necrosis or infection, unspecified (2) UTI (urinary tract infection) Hematuria presence: with hematuria Urinary tract infection type: site unspecified Qualified Code(s): N39.0 - Urinary tract infection, site not specified; R31.9 - Hematuria, unspecified
[2018-06-03] MEDS: cefTRIAXone SODIUM 1,000 MG in DEXTROSE 5% 50 ML IV SCH (12:38)
--- NOTE | 2018-06-04 08:39 | Discharge Summary ---
Date of Service June 04, 2018 Admission HPI Per Admitting Provider Pt is a 73 y/o F with PMH HTN, CKD III who presented to ER from PCP office for abdominal pain and abnormal renal functions. Patient reports numerous episodes of diarrhea, episodes of vomiting 4 days ago. Also started mid abdominal pain with radiation to LUQ, and having mid back pain. C/O generalized ANDUJAR, intermittent dizziness with standing. Reports last episode of diarrhea was 2 days ago. Patient has been having dry heaves for the past several days. Reports chills however did not record fevers at home. Reports has had decreased appetite and decreased oral intake. Past couple of days with increased burping and had trouble swallowing solids. States yesterday was able to eat some cream soup. Has been able to swallow liquids today, denies food bolus sensation. Was seen at PCPs office today for symptoms and was given dose of Toradol and had labs revealing creatinine >4 with her baseline ~1. Patient reports that has been having bright red bloody stools for several months, initially with benign colonoscopy however reports is scheduled for one soon. Patient denies any recent antibiotic use, recent travel, ill contacts. Denies diaphoresis, hematemesis, syncope, vision changes, neck pain, CP, SOB, orthopnea, palpitations, cough, sore throat, choking, otalgia, rhinorrhea, paresthesias, extremity weakness, extremity edema, rashes, dysuria, hematuria, urinary frequency. Admission Exam Per Admitting Provider Vital Signs (Past 24 Hours): Last Vital Signs Temp 36.9 C 05/29/18 14:58 Pulse 66 05/29/18 19:16 Resp 19 05/29/18 19:16 BP 141/66 H 05/29/18 19:16 Pulse Ox 96 05/29/18 19:16 Physical Exam: General: no acute distress, WDWN Head: normocephalic, atraumatic Eyes: PERRL, EOM's intact, conjunctiva non-injected, anicteric ENT: normal inspection external ears, nose, mucous membranes dry Neck: supple, trachea midline, non-tender Lungs: clear, no respiratory distress, no wheezing/rhonchi/rales CV: RRR, no murmur, no pretibial edema Abd: normal BS, soft, +tender to palpation epigastric region without rebound or guarding Ext: no cyanosis, no calf tenderness Neuro: A&O x 3, no focal deficits noted, normal affect Skin: warm, dry Principal Diagnosis Acute pancreatitis, AK I, hypertension Discharge Exam Constitutional WD/WN, vitals as above Eyes PERRL, conjunctivae normal, anicteric sclerae ENMT external ear and nose normal, oropharynx normal Neck trachea midline, no thyromegaly Respiratory normal respiratory effort Auscultation: lungs clear to auscultation bilaterally Cardiovascular Rate/Rhythm: regular rate and regular rhythm Heart Sounds: normal S1 and normal S2; no murmur Gastrointestinal (Abdomen) Inspection/Auscultation: abdomen normal to inspection and normal bowel sounds Percussion/Palpation: abdomen soft; abdomen nontender Discharge Data Allergies Allergy/AdvReac Type Severity Reaction Status Date / Time mivacurium Allergy Unknown HYPERVENTIL Verified 09/08/17 13:02 ATES azithromycin AdvReac Tachycardia Unverified 05/29/18 15:46 Consultations 05/29/18 16:35 ED Decision to Admit Stat 05/29/18 20:35 Consult Gastroenterology Routine Consult Nephrology Routine 06/02/18 15:35 Consult Patient Rep / Service Excellence [Consult Patient Services] Routine Ordered Studies 05/29/18 15:23 CT abd pelvis wo con Stat 05/29/18 16:38 US gallbladder Stat 05/30/18 09:54 MR MRCP Routine 05/31/18 10:32 CT head/brain wo con Stat Hospital Course (1) MAGGI (acute kidney injury): Likely secondary to dehydration with diarrhea, vomiting started 4 days ago. Poor oral intake and complicated by use of lisinopril IV fluids Monitor renal functions Avoid nephrotoxic agents, avoid NSAIDs, lisinopril Nephrology consult, appreciate recommendations. Discussed IVF with conveyor belt operator and recommends LR @100ml/hr Renal function has been improving 4.90 on admission and 4.06 as of 05/30 We will continue current IV fluid Kidney function has improved a lot Appreciate nephrology input and recommendation Creatinine is much improved at 1.55 today She was advised to continue to drink more fluid at home We will have nephrology appointment as an outpatient (2) Pancreatitis: CT Abd/pelvis w/o contrast: There are no acute infectious or inflammatory findings identified in the abdomen or pelvis on this unenhanced examination Serum lipase is elevated to more than 2000 Has been n.p.o. Symptomatic treatment with Zofran prn nausea, morphine prn pain US RUQ-no gallstones or acute cholecystitis GI consult, appreciate recommendations MRCP:1. Nonspecific narrowing of the common hepatic duct at the level of the hilum. There is no significant intrahepatic biliary ductal dilatation. No discrete masses are delineated. An ERCP could be obtained in follow-up as clinically appropriate. 2. No gallstones identified. No ductal filling defects identified. 3. 7 mm common bile duct. 3 mm pancreatic duct. 4. Septated left lobe hepatic cysts 5. Septated right renal cysts Clinically improved Has been tolerating regular diet Has been ambulating well No acute abdominal pain and/or nausea vomiting (3) Elevated liver function tests: Bili: <0.1, AST: 79, ALT: 176, Alk Phos: 135, LFTs have been improved and normalized (4) UTI (urinary tract infection): Denies urinary symptoms UA: 1+blood, 2+leuk, >30 WBC, 10-20 epithel, 1+ bacteria -Rocephin -pending urine ; growing E. coli and pansensitive -We will continue ceftriaxone for now -Antibiotic course is done (5) HTN (hypertension): -Hold lisinopril with MAGGI -monitor BP, may need to consider different agent -We will not give any more lisinopril for acute kidney failure -Continue with amlodipine as an outpatient (6) Rectal bleeding: Reported hx bright red rectal bleeding with BM's x several months Hgb: 11 -monitor -GI consult, appreciate recommendations -EUS and colonoscopy as an outpatient-GI will arrange DVT Prophylaxis -SCDs for now with reported hx rectal bleeding Full Code as per discussion with pt Follows with Dr Khan for routine care Total Time Total Time Spent Total Time Spent (In Minutes): 35 minutes Total Time Includes: Examination of the Patient, Discharge Planning, Medication Reconciliation and Communication With Other Providers Discharge Plan Discharge Items Patient Disposition: Home - Self-Care Reason For Visit: MAGGI,PANCREATITIS Discharge Diagnosis: Acute pancreatitis, AK I, hypertension Condition: Good Discharge Goals: Decrease discomfort, Improve function and Increase independence Activity: Resume your previous activity Non-emergency contact: Primary Care Provider Call non-emergency contact if: you have any medication questions and your symptoms worsen Follow-up/Referrals: Cristian Ragsdale MD [Primary Care Provider] - 06/10/18 11:05 am (Your appointment is going to be with Dr. Montgomery. Dr. Lerma is not available. Please keep your appointment with composite bond technician. The nephrology office will call for appointment) Diet: Heart Healthy and Low Sodium (2gm) Addtl Provider Instructions: Try to drink more fluid. No NSAID use or aspirin for now. Prescriptions: New amlodipine [Norvasc] 5 mg Tablet 5 mg PO QAM 30 Days Qty: 30 RF: 0 Discontinued lisinopril 10 mg tablet 10 mg PO TID RF: 0 aspirin 81 mg Tablet,Chewable 81 mg PO DAILY RF: 0 Stand-Alone Forms: [facility], Work/School Release (Inpt) Discharge Orders: Discharge Order (Routine); Ordered 06/03/18 Ordered By: Juanita Mcqueen Admission Data Admit Date/Time: 05/29/18 17:43 Attending Provider: Juanita Mcqueen Admit Provider: Greg Charles Primary Care Provider: Cristian Ragsdale Other Providers: Greg Charles ; Paulette Chirinos ; Luisa Melara ; Saavge Sloan Manabendra Service: Telemetry Medical Other Interventions: Discharge Summary Assessment (RN) Last Done: 06/03/18 12:36 DC Date/Time DO NOT enter until pt leaves facility: 06/03/18 14:04
== END 2018-06-03 14:04 | disposition home or self-care (01) | DRG 682 ==
LOC: ED 14:20 → SUATTDRO 17:43 → 2W 18:01
DX: N17.9 Acute kidney failure, unspecified; I12.9 Hypertensive chronic kidney disease with stage 1 through stage 4 chronic kidney disease, or unspecified chronic kidney disease; N39.0 Urinary tract infection, site not specified; N18.3 Chronic kidney disease, stage 3 (moderate); K85.90 Acute pancreatitis without necrosis or infection, unspecified; K62.5 Hemorrhage of anus and rectum; E86.0 Dehydration; K64.9 Unspecified hemorrhoids; B96.20 Unspecified Escherichia coli [E. coli] as the cause of diseases classified elsewhere

== ENCOUNTER 2021-01-18 00:46 | Inpatient (IN) ==
[2021-01-18] MEDS ORDERED: ONDANSETRON INJ 2 MG/ML 2 ML VIAL IV STA ×3 (00:59→04:15)
[2021-01-18] MEDS ORDERED: fentaNYL citrate 100 MCG/2 ML VIAL IV STA (00:59)
[2021-01-18] MEDS ORDERED: SODIUM CHLORIDE 0.9% 1000ML 1,000 ML IV ONE ×2 (00:59→04:15)
--- NOTE | 2021-01-18 01:02 | Emergency Department Note ---
Impression & Plan Intractable abdominal pain, Intractable vomiting ED Provider Note Name: NELLA BUSTOS Age: 75 Sex: F Arrives Via: Ambulance Informant: Patient ED Provider: Leandro Box MD Chief Complaint: Abdominal pain Impression: Medical Decision Making: This is a 75-year-old female arrives via ambulance from home with acute left upper quadrant pain nausea vomiting or diarrhea. She has a history of pancreatitis and notes this is similar. IV established she was given IV pain medications and Zofran with improvement. Labs reveal no acute abnormality other than mild renal insufficiency. Given degree of her pain I do feel it is reasonable to proceed with CT abdomen and pelvis. She is noted of irregular heart rate on monitor but on EKG it appears that this is normal sinus rhythm with underlying PACs. Patient requiring repeat dosing of narcotics and anti-emetics and thus it was felt she would not be able to tolerate outpatient management of this. Initial lipase negative and given location of pain, it seems that pancreatitis is less likely. The hospitalist was consulted and patient comfortable with staying in hospital. I will note, given the severe de lays associated with COVID pandemic, hospitalist was consulted prior to read of CT scan in effort to further more efficiency and patient care. Prior Medical Record and Triage/Nursing Notes reviewed by Me Additional history obtained from chart Differentials Pancreatitis, Colitis, Diverticulitis, GERD, perforation, aortic pathology, ischemia, biliary pathology, volvulus, as well as other pathologies. amongst other pathologies. Vital Signs: reviewed and remarkable for no significant abnormalities Interventions: fentanyl iv, zofran 4mg iv x 3, dilaudid 0.5mg iv x 2, nss bolus Labs:Reviewed and remarkable for no significant abnormalities Imaging:See Below EKG:Per My Interpretation: Indication abdominal pain: NSR 95 bpm, qtc 472. No Ectopy. No Ischemia. Nonspecific ST depressions inferiorly. Compared to EKG 01/06/19, no significant changes. Cardiac/Tele Monitoring: Cardiac Monitoring: An Order was placed for continuous cardiac monitoring. The monitor shows a rate of 70 with a normal sinus rhythm. Consults:Dr Araceli Hernandez Hospitalist Plan: Disposition:Hospitalization. Condition: Good History of Present Illness:75-year-old female arrives from home via EMS with acute abdominal pain. Patient notes 3 to 4 hours ago developing acute left upper abdominal pain with mild radiation to left lower quadrant and back. Associated with nausea vomiting and diarrhea. She notes this is identical to previous episodes of pancreatitis. Most recently was hospitalized 1 year ago for pancreatitis. She has taken no medications prior to arrival. Movement makes worse nothing makes better. No interventions by EMS in route. Patient denies any shortness of breath, chest pain, fever, chills, headache, neck pain, sore throat, leg swelling, rashes, blood in stool, urinary symptoms, or other symptoms. ROS: See above HPI for pertinent positives & negatives. A total of 10 systems reviewed and were otherwise negative. Past Medical History:See Below Past Surgical History:See Below Family History:See Below Social History:See Below Home Medications:See Below Allergies:Azithromycin Vitals:Blood Pressure: 103/56, Pulse 89, RR 20, T 36.6C, O2 93% on RA Physical Exam: GENERAL: Patient is very uncomfortable appearing and in severe distress. Dehydrated appearing, dry heaving EYES: No scleral icterus, unremarkable pupils. ENT: Mucous membranes dry, no nasal congestion. NECK: No masses appreciated, nomeningismus, trachea is midline. RESPIRATORY: No dyspnea. Clear to auscultation and equal bilaterally. No wheeze, no rhonchi. CARDIOVASCULAR: Tachy.No murmurs, rubs, gallops appreciated. GASTROINTESTINAL: TTP entire left abdomen, Abdomen soft.Bowel sounds positive.No masses appreciated. BACK: No midline tenderness, no CVA tenderness EXTREMITIES: Normal motion all extremities, no cyanosis, no edema. NEUROLOGIC: Alert and oriented, no acute motor or sensory deficits, no focal weakness, cranial nerves grossly intact. SKIN: No rash, no jaundice, no diaphoresis. PSYCH: Appropriate GCS: 15 ED Course: Times/Reassessments: Patient feeling much better, calm, cooperative and no distress Leandro Box MD Past Med/Surg History Medical History (Updated 01/19/21 @ 07:00 by Leandro Box MD) CKD (chronic kidney disease), stage III Endometrial cancer 1998--sx Hearing deficit HTN (hypertension) Osteoarthritis Pancreatitis Retinal artery branch occlusion of right eye Surgical History History of bilateral tubal ligation History of carpal tunnel surgery of right wrist History of colonoscopy History of tonsillectomy History of tooth extraction all teeth removed History of total abdominal hysterectomy and bilateral salpingo-oophorectomy Family History Other Cancer Hypertension No family history of adverse response to anesthesia Social History Smoking Status: Never smoker Second Hand Exposure: Yes (father smoked); Hx Alcohol Use: No Hx Substance Use: No Preferred Language: Burkinan Communication Ability: Effective Synthetic Chemist Required: No Beliefs That Will Affect Care: None Current Living Situation: Alone Current Living Situation Comment: daughter is frequently there or she is at her daughters house Other Information That Helps Us Care for You: No Feels Safe at Home: Yes Safety Concerns: Feels Safe At This Time Assistive Devices: Glasses Allergies Allergies Allergy/AdvReac Type Severity Reaction Status Date / Time azithromycin Allergy Severe hyperventil Verified 01/18/21 01:54 ation Home Meds Home Medications Medication Instructions Recorded Confirmed aspirin 81 mg tablet,delayed 81 mg PO QAM 06/05/18 01/18/21 release amlodipine 5 mg tablet 5 mg PO QAM 09/12/18 01/18/21 atorvastatin 20 mg tablet 20 mg PO DAILY 01/18/21 01/18/21 Results & Data (ED) Vital Signs Vital Signs - 24 hr 01/18/21 01:00 01/18/21 03:00 Temperature 36.6 C Temperature Source Oral Pulse Rate 130 H 89 Pulse Rate from SpO2 Sensor 80 Respiratory Rate 28 H 20 Blood Pressure 130/78 103/56 L Blood Pressure Mean 95 71 Pulse Oximetry 98 93 Oxygen Delivery Method Room Air Room Air Sepsis Recent Fever Within 48 Hours No Sepsis New/Unexplained Change in Mental Status No Sepsis Action Taken by Nursing No Action Required Laboratory Data Result diagrams: 01/18/21 01:30 01/18/21 14:37 Lab Results 01/18/21 01/18/21 01/18/21 Range/Units 01:30 01:30 03:50 WBC 10.04 (4.8-10.8) K/uL RBC 4.07 L (4.2-5.4) M/uL Hgb 12.4 (12.0-16.0) g/dL Hct 37.4 (37-47) % MCV 91.9 (80-100) fL MCH 30.5 (25-34) pg MCHC 33.2 (32-36) g/dL RDW Std Deviation 43.4 (36.4-46.3) fL RDW Coeff of Robert 12.9 (11.5-14.5) % Plt Count 277 (130-400) K/uL MPV 8.6 (7.4-10.4) fL Immature Gran % (Auto) 0.1 % Neut % (Auto) 87.0 % Lymph % (Auto) 10.2 % Rabun % (Auto) 2.5 % Eos % (Auto) 0.0 % Baso % (Auto) 0.2 % Neut # (Auto) 8.74 H (1.4-6.5) K/uL Lymph # (Auto) 1.02 L (1.2-3.4) K/uL Rabun # (Auto) 0.25 (0.11-0.59) K/uL Eos # (Auto) 0.00 (0-0.5) K/uL Baso # (Auto) 0.02 (0-0.2) K/uL Immature Gran # (Auto) 0.01 (0.00-0.02) K/uL Sodium 131 L (136-145) mmol/L Potassium 3.4 L (3.5-5.1) mmol/L Chloride 98 (98-107) mmol/L Carbon Dioxide 25 (21-32) mmol/L Anion Gap 8.0 (3-11) BUN 19 H (7-18) mg/dl Creatinine 1.49 H (0.6-1.2) mg/dl Est Cr Clr Drug Dosing Not Reportable Est GFR ( Amer) 39.7 ml/min Est GFR (Non-Af Amer) 34.2 ml/min BUN/Creatinine Ratio 13.1 (10-20) Glucose 129 H (70-99) mg/dl Calcium 11.1 H (8.5-10.1) mg/dl Magnesium 2.8 H (1.8-2.4) mg/dl Total Bilirubin 0.4 (0.2-1) mg/dl Direct Bilirubin 0.1 (0-0.2) mg/dl AST 25 (15-37) U/L ALT 30 (12-78) U/L Alkaline Phosphatase 74 (45-117) U/L Troponin I < 0.015 (0-0.045) ng/ml Total Protein 7.2 (6.4-8.2) gm/dl Albumin 3.7 (3.4-5.0) gm/dl Lipase 235 (73-393) U/L Urine Color Dark Yellow Urine Appearance Clear (Clear) Urine pH 7.5 (4.5-7.5) Ur Specific Romeo 1.011 (1.000-1.030) Urine Protein Negative (Negative) Urine Glucose (UA) Negative (Negative) Urine Ketones Negative (Negative) Urine Blood 1+ H (Negative) Urine Nitrite Negative (Negative) Urine Bilirubin Negative (Negative) Urine Urobilinogen Negative (Negative) Ur Leukocyte Esterase 1+ H (Negative) Urine WBC (Auto) 10-30 H (0-5) /hpf Urine RBC (Auto) 0-4 (0-4) /hpf U Hyaline Cast (Auto) 0 (0-5) /lpf U Epithel Cells (Auto) >30 H (0-5) /lpf Urine Bacteria (Auto) Negative (Negative) Urine Yeast Not Reportable SARS-CoV-2, RNA, NAAT (NEGATIVE) 01/18/21 Range/Units 04:18 WBC (4.8-10.8) K/uL RBC (4.2-5.4) M/uL Hgb (12.0-16.0) g/dL Hct (37-47) % MCV (80-100) fL MCH (25-34) pg MCHC (32-36) g/dL RDW Std Deviation (36.4-46.3) fL RDW Coeff of Robert (11.5-14.5) % Plt Count (130-400) K/uL MPV (7.4-10.4) fL Immature Gran % (Auto) % Neut % (Auto) % Lymph % (Auto) % Rabun % (Auto) % Eos % (Auto) % Baso % (Auto) % Neut # (Auto) (1.4-6.5) K/uL Lymph # (Auto) (1.2-3.4) K/uL Rabun # (Auto) (0.11-0.59) K/uL Eos # (Auto) (0-0.5) K/uL Baso # (Auto) (0-0.2) K/uL Immature Gran # (Auto) (0.00-0.02) K/uL Sodium (136-145) mmol/L Potassium (3.5-5.1) mmol/L Chloride (98-107) mmol/L Carbon Dioxide (21-32) mmol/L Anion Gap (3-11) BUN (7-18) mg/dl Creatinine (0.6-1.2) mg/dl Est Cr Clr Drug Dosing Est GFR ( Amer) ml/min Est GFR (Non-Af Amer) ml/min BUN/Creatinine Ratio (10-20) Glucose (70-99) mg/dl Calcium (8.5-10.1) mg/dl Magnesium (1.8-2.4) mg/dl Total Bilirubin (0.2-1) mg/dl Direct Bilirubin (0-0.2) mg/dl AST (15-37) U/L ALT (12-78) U/L Alkaline Phosphatase (45-117) U/L Troponin I (0-0.045) ng/ml Total Protein (6.4-8.2) gm/dl Albumin (3.4-5.0) gm/dl Lipase (73-393) U/L Urine Color Urine Appearance (Clear) Urine pH (4.5-7.5) Ur Specific Romeo (1.000-1.030) Urine Protein (Negative) Urine Glucose (UA) (Negative) Urine Ketones (Negative) Urine Blood (Negative) Urine Nitrite (Negative) Urine Bilirubin (Negative) Urine Urobilinogen (Negative) Ur Leukocyte Esterase (Negative) Urine WBC (Auto) (0-5) /hpf Urine RBC (Auto) (0-4) /hpf U Hyaline Cast (Auto) (0-5) /lpf U Epithel Cells (Auto) (0-5) /lpf Urine Bacteria (Auto) (Negative) Urine Yeast SARS-CoV-2, RNA, NAAT NEGATIVE (NEGATIVE) Administered Medications Amlodipine Besylate (Amlodipine Besylate 5 Mg Tab) 5 mg PO [facility] Stop: 02/17/21 08:59 Last Admin: 01/18/21 11:36 Dose: 5 mg Documented by: [id number] Aspirin (Aspirin 81 Mg Ectab) 81 mg PO [facility] Stop: 02/17/21 08:59 Last Admin: 01/18/21 11:36 Dose: 81 mg Documented by: [id number] Atorvastatin Calcium (Atorvastatin 20 Mg Tab) 20 mg PO DAILY [facility] Stop: 02/17/21 08:59 Last Admin: 01/18/21 09:34 Dose: Not Given Documented by: [id number] Hydromorphone HCl (Hydromorphone Inj 0.5 Mg/0.5 Ml Syr) 0.5 mg IV Q3H PRN PRN Reason: Pain Stop: 02/01/21 06:40 Last Admin: 01/18/21 20:01 Dose: 0.5 mg Documented by: [id number] Admin: 01/18/21 08:02 Dose: 0.5 mg Documented by: [id number] Dextrose/Sodium Chloride (D5w And Nss) 1,000 mls @ 125 mls/hr IV .Q8H [facility] Stop: 02/17/21 06:59 Last Admin: 01/18/21 23:54 Dose: 125 mls/hr Documented by: [id number] Infusion: 01/18/21 23:54 Dose: 0 mls/hr Documented by: [id number] Admin: 01/18/21 16:34 Dose: 125 mls/hr Documented by: [id number] Infusion: 01/18/21 15:57 Dose: 125 mls/hr Documented by: [id number] Admin: 01/18/21 07:57 Dose: 125 mls/hr Documented by: [id number] Ceftriaxone Sodium 1,000 mg/ (Dextrose) 50 mls @ 100 mls/hr IV Q24H [facility]; Protocol Stop: 01/28/21 06:59 Last Admin: 01/19/21 06:39 Dose: 100 mls/hr Documented by: [id number] Infusion: 01/18/21 08:56 Dose: 0 mls/hr Documented by: [id number] Admin: 01/18/21 07:57 Dose: 100 mls/hr Documented by: [id number] Ondansetron HCl (Ondansetron Inj 2 Mg/Ml 2 Ml Vial) 4 mg IV Q8H PRN PRN Reason: Nausea Stop: 02/17/21 08:59 Last Admin: 01/18/21 20:01 Dose: 4 mg Documented by: [id number] Admin: 01/18/21 09:42 Dose: 4 mg Documented by: [id number] Raspberry (Raspberry Syrup 5 Ml Udp) 5 ml PO Q6 [facility] Stop: 01/28/21 11:59 Last Admin: 01/19/21 06:02 Dose: 5 ml Documented by: [id number] Admin: 01/18/21 23:54 Dose: 5 ml Documented by: [id number] Admin: 01/18/21 17:26 Dose: 5 ml Documented by: [id number] Admin: 01/18/21 11:36 Dose: 5 ml Documented by: [id number] Vancomycin HCl (Vancomycin Hcl 250 Mg/5 Ml Soln) 250 mg PO Q6 [facility] Stop: 01/28/21 11:59 Last Admin: 01/19/21 06:02 Dose: 250 mg Documented by: [id number] Admin: 01/18/21 23:54 Dose: 250 mg Documented by: [id number] Admin: 01/18/21 17:26 Dose: 250 mg Documented by: [id number] Admin: 01/18/21 11:37 Dose: 250 mg Documented by: [id number] Discontinued Medications Fentanyl Citrate (Fentanyl Citrate 100 Mcg/2 Ml Vial) 50 mcg IV NOW STA Stop: 01/18/21 01:00 Last Admin: 01/18/21 01:04 Dose: 50 mcg Documented by: [id number] Hydromorphone HCl (Hydromorphone Inj 0.5 Mg/0.5 Ml Syr) 0.5 mg IV NOW STA Stop: 01/18/21 01:34 Last Admin: 01/18/21 01:46 Dose: 0.5 mg Documented by: [id number] Hydromorphone HCl (Hydromorphone Inj 0.5 Mg/0.5 Ml Syr) 0.5 mg IV NOW STA Stop: 01/18/21 04:16 Last Admin: 01/18/21 04:23 Dose: 0.5 mg Documented by: [id number] Sodium Chloride (Nss 1000ml) 1,000 mls @ 999 mls/hr IV .Q1H1M ONE Stop: 01/18/21 01:59 Last Infusion: 01/18/21 02:28 Dose: 0 mls/hr Documented by: [id number] Admin: 01/18/21 01:05 Dose: 999 mls/hr Documented by: [id number] Sodium Chloride (Nss 1000ml) 1,000 mls @ 999 mls/hr IV .Q1H1M ONE Stop: 01/18/21 05:15 Last Infusion: 01/18/21 05:27 Dose: 0 mls/hr Documented by: [id number] Admin: 01/18/21 04:22 Dose: 999 mls/hr Documented by: [id number] Potassium Chloride (K Eliseo / Wtr) 10 meq in 100 mls @ 100 mls/hr IV Q1H STA Stop: 01/18/21 07:34 Last Admin: 01/18/21 10:30 Dose: Not Given Documented by: [id number] Potassium Chloride (K Eliseo / Wtr) 10 meq in 100 mls @ 100 mls/hr IV Q1H [facility] Stop: 01/18/21 08:59 Last Infusion: 01/18/21 11:54 Dose: 0 mls/hr Documented by: [id number] Admin: 01/18/21 10:28 Dose: 100 mls/hr Documented by: [id number] Infusion: 01/18/21 10:10 Dose: 100 mls/hr Documented by: [id number] Admin: 01/18/21 09:10 Dose: 100 mls/hr Documented by: [id number] Ioversol (Optiray 320 100ml) 93 ml IV ONCE ONE Stop: 01/18/21 04:44 Last Admin: 01/18/21 04:43 Dose: 93 ml Documented by: [id number] Ondansetron HCl (Ondansetron Inj 2 Mg/Ml 2 Ml Vial) 4 mg IV NOW STA Stop: 01/18/21 01:00 Last Admin: 01/18/21 01:05 Dose: 4 mg Documented by: [id number] Ondansetron HCl (Ondansetron Inj 2 Mg/Ml 2 Ml Vial) 4 mg IV NOW STA Stop: 01/18/21 01:42 Last Admin: 01/18/21 01:46 Dose: 4 mg Documented by: [id number] Ondansetron HCl (Ondansetron Inj 2 Mg/Ml 2 Ml Vial) 4 mg IV NOW STA Stop: 01/18/21 04:16 Last Admin: 01/18/21 04:24 Dose: 4 mg Documented by: [id number] Raspberry (Raspberry Syrup 5 Ml Udp) 5 ml PO ONE STA Stop: 01/18/21 06:37 Last Admin: 01/18/21 09:34 Dose: Not Given Documented by: [id number] Vancomycin HCl (Vancomycin Hcl 125 Mg/2.5ml Soln) 125 mg PO ONE STA Stop: 01/18/21 06:37 Last Admin: 01/18/21 09:34 Dose: Not Given Documented by: [id number] Discharge Plan Visit Data Chief Complaint: Abdominal Pain Stated Complaint: ABDOMINAL PAIN ED Provider: eLandro Box Discharge Problem: Intractable abdominal pain, Intractable vomiting Patient Disposition: Admitted As Inpatient Discharge Instructions Interventions: ED Discharge Assessment Last Done: 01/18/21 06:44 Discharge Problem: Intractable vomiting Qualifiers: Vomiting type: unspecified Nausea presence: with nausea Qualified Code(s): R11.2 - Nausea with vomiting, unspecified
[2021-01-18] MEDS ORDERED: HYDROmorphone INJ 0.5 MG/0.5 ML SYR IV STA ×2 (01:33→04:15)
[2021-01-18 01:39] LABS: Hematocrit (blood only) 37.4 % (37-47); Hemoglobin 12.4 g/dL (12.0-16.0); Mean Corpuscular Hemoglobin 30.5 pg (25-34); Mean Corpuscular Hgb Conc 33.2 g/dL (32-36); Mean Corpuscular Volume 91.9 fL (80-100); Mean Platelet Volume 8.6 fL (7.4-10.4); Platelet Count 277 K/uL (130-400); RDW Coefficient of Variation 12.9 % (11.5-14.5); RDW Standard Deviation 43.4 fL (36.4-46.3); Red Blood Count 4.07 M/uL (4.2-5.4); White Blood Count 10.04 K/uL (4.8-10.8)
[2021-01-18 01:57] LABS: Basophils # (auto) 0.02 K/uL (0-0.2); Basophils % (auto) 0.2 %; Immature Granulocytes # (auto) 0.01 K/uL (0.00-0.02); Immature Granulocytes % (auto) 0.1 %; Lymphocytes # (auto) 1.02 K/uL (1.2-3.4); Lymphocytes % (auto) 10.2 %; Monocytes # (auto) 0.25 K/uL (0.11-0.59); Monocytes % (auto) 2.5 %; Neutrophils # (auto) 8.74 K/uL (1.4-6.5)
[2021-01-18 02:00] LABS: Alanine Aminotransferase 30 U/L (12-78); Albumin Level 3.7 gm/dl (3.4-5.0); BUN Creatinine Ratio 13.1 (10-20); Bilirubin Direct 0.1 mg/dl (0-0.2); Blood Urea Nitrogen 19 mg/dl (7-18); Calcium 11.1 mg/dl (8.5-10.1); Carbon Dioxide 25 mmol/L (21-32); Chloride 98 mmol/L (98-107); Est GFR (African American) 39.7 ml/min; Est GFR (Non-African American) 34.2 ml/min; Glucose 129 mg/dl (70-99); Lipase 235 U/L (73-393); Magnesium 2.8 mg/dl (1.8-2.4); Potassium 3.4 mmol/L (3.5-5.1); Sodium 131 mmol/L (136-145)
[2021-01-18 02:05] LABS: Alkaline Phosphatase 74 U/L (45-117); Aspartate Aminotransferase 25 U/L (15-37); Bilirubin,Total 0.4 mg/dl (0.2-1); Total Protein 7.2 gm/dl (6.4-8.2); Troponin I < 0.015 ng/ml (0-0.045)
[2021-01-18 04:39] LABS: Appearance Urine Clear (Clear); Bacteria Urine Automated Negative (Negative); Bilirubin Urine Negative (Negative); Blood Urine 1+ (Negative); Cast Urine Automated 0 /lpf (0-5); Color Urine Dark Yellow; Epithelial Cell Urine Auto >30 /lpf (0-5); Glucose Urine UA Negative (Negative); Ketones Urine Negative (Negative); Leukocyte Esterase Urine 1+ (Negative); Nitrite Urine Negative (Negative); Protein Urine Negative (Negative); Specific Gravity Urine 1.011 (1.000-1.030); Urobilinogen Urine Negative (Negative); pH Urine 7.5 (4.5-7.5)
[2021-01-18] MEDS ORDERED: OPTIRAY 320 100ml IV ONE (04:43)
[2021-01-18 05:14] LABS: RBC Urine Automated 0-4 /hpf (0-4)
[2021-01-18] MEDS ORDERED: POTASSIUM CHLORIDE / WTR 10 MEQ/100 ML PLCT IV STA (06:35)
[2021-01-18] MEDS ORDERED: VANCOMYCIN HCL 125 MG/2.5ML SOLN PO STA (06:36)
[2021-01-18] MEDS ORDERED: RASPBERRY SYRUP 5 ML UDP PO STA (06:36)
--- NOTE | 2021-01-18 06:55 | CT Scan Report ---
CT OF THE ABDOMEN AND PELVIS WITH CONTRAST CLINICAL HISTORY: left sided abdominal pain, history diverticulitis COMPARISON STUDY: CT of the abdomen and pelvis December 26, 2018. MRCP May 30, 2018. TECHNIQUE: Following IV administration of 93 mL of Optiray, axial images of the abdomen and pelvis we re obtained from the lung bases to the proximal femurs. Images were reviewed in the axial, sagittal, and coronal planes. IV contrast was administered without complication. Automated exposure control wa s utilized for the study. A dose lowering technique was utilized adhering to the principles of ALARA . CT DOSE: 244.51 mGycm FINDINGS: Subpleural opacities within the right lower lung liver atelectasis. A small hiatal hernia i s noted. No pneumatosis, free air or portal venous gas is present. There are several hepatic cysts. T here is no biliary or pancreatic ductal dilatation. No peripancreatic or pericholecystic infiltration . Note is made of a multiloculated septated 6.2 x 4.7 x 4.1 cm cystic lesion within the upper pole of the right kidney. This lesion was shown on prior CT. However, there has been interval development of apparent nodular irregular enhancing component measuring 2.3 x 1.3 cm within the posterior aspect of this lesion. There is no hydronephrosis. There is no evidence for a bowel obstruction. There is mode rate to marked wall thickening of the majority of the colon. This is most pronounced within the trans verse colon and the descending colon. A small amount of fluid within the pelvis is present. There is no free air or abscess. There is moderate plaque of the abdominal aorta which is normal in caliber. N o acute fracture or suspicious lesion is identified within the visualized skeletal structures. There is no lymphadenopathy. Small amount of abdominal ascites is present. Bladder is distended. IMPRESSION: 1. Moderate to marked wall thickening of the majority of the colon, most pronounced within the transv erse colon and the descending colon. This represents a nonspecific colitis. No free air or abscess. S mall amount of abdominal and pelvic ascites. 2. Multiloculated septated cystic lesion within the upper pole of the right kidney, measuring 6.2 x 4 .7 x 4.1 cm. Interval development of an apparent enhancing nodular component measuring 2.3 x 1.3 cm w ithin this lesion. Less likely, this could reflect dependent debris or material within this lesion. A neoplasm is the diagnosis of exclusion. Nonemergent renal protocol MRI is recommended for further ev aluation. ACT 112: Positive. There are findings on this exam that require communication between the performing entity and the patient following Patient Test Result Information Act ([place] Act 112) guidelines. Electronically signed by: Pedro Nelson M.D. 01/18/2021 6:54 AM
--- NOTE | 2021-01-18 07:05 | History and Physical Report ---
DATE OF ADMISSION: 01/18/2021. CHIEF COMPLAINT: Abdominal pain. HISTORY OF PRESENT ILLNESS: A 75-year-old female with past medical history significant for hyperlipidemia, hypertension, chronic kidney disease stage III, who presents with severe abdominal pain. The patient states the abdominal pain is located in the left side of abdomen and also having diarrhea that started today. The whole day she was having pain, could not eat much because of pain. The patient is very hard of hearing. Denies any other complaints. Denies any chest pain, shortness of breath, or cough. No headache, no nausea, no shortness of breath. Currently, hemodynamically stable. The patient was here on 12/26/2020 with abdominal pain and at that time CAT scan showed nonspecific colitis and at that time she did not want to get admitted. ALLERGIES: AZITHROMYCIN. PAST MEDICAL HISTORY: As mentioned above. PAST SURGICAL HISTORY: Colonoscopy, EGDs. MEDICATIONS: The patient is on aspirin 81 mg p.o. daily, atorvastatin 20 mg p.o. daily, amlodipine 5 mg p.o. daily. FAMILY HISTORY: Significant for mother has glaucoma, brother has hypertension and obesity. SOCIAL HISTORY: Single, former smoker. No alcohol use. No drug use. REVIEW OF SYSTEMS: As per HPI. Rest of the review of systems is negative. PHYSICAL EXAMINATION: GENERAL: The patient is thin and frail, not in acute distress. VITAL SIGNS: Temperature 36.6, pulse 77, respiratory rate 12, blood pressure 115/53, oxygen 94% on room air. HEENT: Pupils equal, round and reactive to light. Oral mucosa moist. NECK: No JVD, no neck masses. CARDIOVASCULAR: S1 and S2 heard. Regular rate and rhythm. No murmur, no gallop. RESPIRATORY SYSTEM: Normal AP diameter. No accessory muscle use. No wheezing, no crackles. ABDOMEN: Soft, bowel sounds sluggish. Left lower quadrant tenderness present. Guarding present. No distention. CENTRAL NERVOUS SYSTEM: Cranial nerves II-XII grossly intact, nonfocal. EXTREMITIES: No edema, no erythema. LABORATORY DATA: WBC 10.04, hemoglobin 12.4, hematocrit 37.4, platelets 277. Sodium 131, potassium 3.4, chloride 98, BUN 19, creatinine 1.4, serum glucose 129, calcium 11.9, magnesium 2.8, total bilirubin 0.4, direct bilirubin 0.1, AST 25, ALT 30, alkaline phosphatase 74. Troponin I less than 0.015. Lipase 235. Urinalysis, +1 leukocyte esterase. SARS-CoV-2 PCR negative. IMAGING DATA: CT of abdomen and pelvis results are pending. EKG: Normal sinus rhythm at a rate of 95. Nonspecific ST abnormalities. ASSESSMENT AND PLAN: This 75-year-old presents with severe abdominal pain. 1. Severe abdominal pain in the left lower quadrant: The patient has nonspecific colitis on the CAT scan done on 12/26/2020. CAT scan ordered in the ER, results are pending. Will follow the CAT scan. The patient is also having diarrhea. We will check the stool for cultures and stool for C. diff and stool for Hemoccults. We will keep her n.p.o., IV fluids, IV pain medication, IV antiemetics and consult GI for further recommendations. 2. Possible urinary tract infection: Possibly contributing to her symptoms. Will follow the cultures. Will empirically start on Rocephin. 3. Hypercalcemia: Possibly from dehydration. Currently getting fluids. Will follow the repeat labs. Will also check vitamin D levels and PTH levels. 4. Hyperlipidemia: Continue statin. 5. Hypertension: Continue amlodipine. 6. Acute kidney injury on chronic kidney disease stage III: Baseline creatinine 1.1, presently creatinine of 1.3. Getting fluids. Avoid nephrotoxic agents. Follow the repeat labs. 7. Deep venous thrombosis prophylaxis: Sequential compression devices for now. DISPOSITION: Observation in medical floor. Expect to discharge home and follow with family doctor. Addendum: Ct scan shoing colitis. Empirically started on po vancomycin.Await c diff results. Job ID: [id number] [facility]
[2021-01-18] MEDS: D5W AND NSS 1,000 ML IV SCH ×3 (07:57→23:54)
[2021-01-18] MEDS: cefTRIAXone SODIUM 1,000 MG in DEXTROSE 5% 50 ML IV SCH (07:57)
[2021-01-18] MEDS: HYDROmorphone INJ 0.5 MG/0.5 ML SYR IV PRN ×2 (08:02→20:01)
[2021-01-18] MEDS: POTASSIUM CHLORIDE / WTR 10 MEQ/100 ML PLCT IV SCH ×2 (09:10→10:28)
--- NOTE | 2021-01-18 09:27 | Gastrointestinal Consultation ---
Date of Consultation January 18, 2021 Assessment & Plan (1) Colitis: 75 year old female with abd pain, diarrhea, colitis on CT - Check stool studies - NPO - Clear liquids - Consider bentyl 10 mg three times daily Thank you for allowing us to participate in the care of this patient. Please call with any acute changes, questions or concerns. Please see addendum below with additional recommendation from my supervising physician. Supervising Physician Co-Signing Physician Notes I have seen and examined the patient with CASEY Chavarria whose note reflects our findings and plan. Diarrhea and colitis on CT. Patient needs stool testing completed. Bowel rest. Clears ok. Awaiting further diagnostics History of Present Illness Reason for Consultation: abd pain Requesting Physician: Scarlet Attending Physician: Zack Novak MD History of Present Illness 75 year old female with history of hyperlipidemia, hypertension, chronic kidney disease stage III, admitted w/. abd pain, diarrhea, onset yesterday. Notes pain is severe, lower abd. Constant. Associated with change in bowel habits. Severe diarrhea. Denies black or bloody stools. Feeling nauseated. No vomiting. No fever, chills, CP, SOB. CTAP 2020: Moderate to marked wall thickening of the majority of the colon, most pronounced within the transverse colon and the descending colon. This represents a nonspecific colitis. No free air or abscess. Small amount of abdominal and pelvic ascites. 2. Multiloculated septated cystic lesion within the upper pole of the right kidney, measuring 6.2 x 4.7 x 4.1 cm. Interval development of an apparent enhancing nodular component measuring 2.3 x 1.3 cm within this lesion. Less likely, this could reflect dependent debris or material within this lesion. A neoplasm is the diagnosis of exclusion. Nonemergent renal protocol MRI is recommended for further evaluation. Allergies Allergy/AdvReac Type Severity Reaction Status Date / Time azithromycin Allergy Severe hyperventil Verified 01/18/21 01:54 ation Home Medications Medication Instructions Recorded Confirmed Type aspirin 81 mg tablet,delayed 81 mg PO QAM 06/05/18 01/18/21 History release amlodipine 5 mg tablet 5 mg PO QAM 09/12/18 01/18/21 History atorvastatin 20 mg tablet 20 mg PO DAILY 01/18/21 01/18/21 History Patient History Medical History (Updated 01/18/21 @ 09:25 by CASEY Pickett) CKD (chronic kidney disease), stage III Endometrial cancer 1998--sx Hearing deficit HTN (hypertension) Osteoarthritis Pancreatitis Retinal artery branch occlusion of right eye Surgical History History of bilateral tubal ligation History of carpal tunnel surgery of right wrist History of colonoscopy History of tonsillectomy History of tooth extraction all teeth removed History of total abdominal hysterectomy and bilateral salpingo-oophorectomy Family History Other Cancer Hypertension No family history of adverse response to anesthesia Social History Smoking Status: Never smoker Second Hand Exposure: Yes (father smoked); Hx Alcohol Use: No Hx Substance Use: No Preferred Language: Swedish Communication Ability: Effective Rapid Extractor Operator Required: No Beliefs That Will Affect Care: None Current Living Situation: Alone Current Living Situation Comment: daughter is frequently there or she is at her daughters house Other Information That Helps Us Care for You: No Feels Safe at Home: Yes Safety Concerns: Feels Safe At This Time Assistive Devices: Denture - Upper, Denture - Lower and Glasses Review of Systems Review of Systems: All systems reviewed & are unremarkable except as noted in HPI & below Physical Exam Constitutional: WD/WN, vitals as above Neck: trachea midline, no thyromegaly Respiratory: normal respiratory effort, lungs clear to auscultation Cardiovascular: RRR, no murmur, no edema Gastrointestinal (Abdomen): normal bowel sounds, soft, nontender, no hepatosplenomegaly Skin: no rashes, warm and dry Results & Data ([facility]) Vital Signs (Past 12 Hours) Vital Signs Temp Pulse Pulse Resp BP BP Pulse Ox 01/18/21 06:41 36.3 C L 88 19 148/81 H 94 01/18/21 06:00 78 20 126/56 L 93 01/18/21 05:00 77 12 115/53 L 94 01/18/21 04:30 82 15 134/59 L 95 01/18/21 03:00 89 20 103/56 L 93 01/18/21 01:00 36.6 C 130 H 28 H 130/78 98 Laboratory Results 01/18/21 01/18/2101/18/21 Range/Units 04:18 03:50 01:30 WBC (4.8-10.8) K/uL RBC (4.2-5.4) M/uL Hgb (12.0-16.0) g/dL Hct (37-47) % MCV (80-100) fL MCH (25-34) pg MCHC (32-36) g/dL RDW Std Deviation (36.4-46.3) fL RDW Coeff of Robert (11.5-14.5) % Plt Count (130-400) K/uL MPV (7.4-10.4) fL Immature Gran % (Auto) % Neut % (Auto) % Lymph % (Auto) % [place] % (Auto) % Eos % (Auto) % Baso % (Auto) % Neut # (Auto) (1.4-6.5) K/uL Lymph # (Auto) (1.2-3.4) K/uL [place] # (Auto) (0.11-0.59) K/uL Eos # (Auto) (0-0.5) K/uL Baso # (Auto) (0-0.2) K/uL Immature Gran # (Auto) (0.00-0.02) K/uL Sodium 131 L (136-145) mmol/L Potassium 3.4 L (3.5-5.1) mmol/L Chloride 98 (98-107) mmol/L Carbon Dioxide 25 (21-32) mmol/L Anion Gap 8.0 (3-11) BUN 19 H (7-18) mg/dl Creatinine 1.49 H (0.6-1.2) mg/dl Est Cr Clr Drug Dosing Not Reportable Est GFR ( Amer) 39.7 ml/min Est GFR (Non-Af Amer) 34.2 ml/min BUN/Creatinine Ratio 13.1 (10-20) Glucose 129 H (70-99) mg/dl Calcium 11.1 H (8.5-10.1) mg/dl Magnesium 2.8 H (1.8-2.4) mg/dl Total Bilirubin 0.4 (0.2-1) mg/dl Direct Bilirubin 0.1 (0-0.2) mg/dl AST 25 (15-37) U/L ALT 30 (12-78) U/L Alkaline Phosphatase 74 (45-117) U/L Troponin I < 0.015 (0-0.045) ng/ml Total Protein 7.2 (6.4-8.2) gm/dl Albumin 3.7 (3.4-5.0) gm/dl Lipase 235 (73-393) U/L Urine Color Dark Yellow Urine Appearance Clear (Clear) Urine pH 7.5 (4.5-7.5) Ur Specific [place] 1.011 (1.000-1.030) Urine Protein Negative (Negative) Urine Glucose (UA) Negative (Negative) Urine Ketones Negative (Negative) Urine Blood 1+ H (Negative) Urine Nitrite Negative (Negative) Urine Bilirubin Negative (Negative) Urine Urobilinogen Negative (Negative) Ur Leukocyte Esterase 1+ H (Negative) Urine WBC (Auto) 10-30 H (0-5) /hpf Urine RBC (Auto) 0-4 (0-4) /hpf U Hyaline Cast (Auto) 0 (0-5) /lpf U Epithel Cells (Auto) >30 H (0-5) /lpf Urine Bacteria (Auto) Negative (Negative) Urine Yeast Not Reportable SARS-CoV-2, RNA, NAAT NEGATIVE (NEGATIVE) 01/18/21 Range/Units 01:30 WBC 10.04 (4.8-10.8) K/uL RBC 4.07 L (4.2-5.4) M/uL Hgb 12.4 (12.0-16.0) g/dL Hct 37.4 (37-47) % MCV 91.9 (80-100) fL MCH 30.5 (25-34) pg MCHC 33.2 (32-36) g/dL RDW Std Deviation 43.4 (36.4-46.3) fL RDW Coeff of Robert 12.9 (11.5-14.5) % Plt Count 277 (130-400) K/uL MPV 8.6 (7.4-10.4) fL Immature Gran % (Auto) 0.1 % Neut % (Auto) 87.0 % Lymph % (Auto) 10.2 % [place] % (Auto) 2.5 % Eos % (Auto) 0.0 % Baso % (Auto) 0.2 % Neut # (Auto) 8.74 H (1.4-6.5) K/uL Lymph # (Auto) 1.02 L (1.2-3.4) K/uL [place] # (Auto) 0.25 (0.11-0.59) K/uL Eos # (Auto) 0.00 (0-0.5) K/uL Baso # (Auto) 0.02 (0-0.2) K/uL Immature Gran # (Auto) 0.01 (0.00-0.02) K/uL Sodium (136-145) mmol/L Potassium (3.5-5.1) mmol/L Chloride (98-107) mmol/L Carbon Dioxide (21-32) mmol/L Anion Gap (3-11) BUN (7-18) mg/dl Creatinine (0.6-1.2) mg/dl Est Cr Clr Drug Dosing Est GFR ( Amer) ml/min Est GFR (Non-Af Amer) ml/min BUN/Creatinine Ratio (10-20) Glucose (70-99) mg/dl Calcium (8.5-10.1) mg/dl Magnesium (1.8-2.4) mg/dl Total Bilirubin (0.2-1) mg/dl Direct Bilirubin (0-0.2) mg/dl AST (15-37) U/L ALT (12-78) U/L Alkaline Phosphatase (45-117) U/L Troponin I (0-0.045) ng/ml Total Protein (6.4-8.2) gm/dl Albumin (3.4-5.0) gm/dl Lipase (73-393) U/L Urine Color Urine Appearance (Clear) Urine pH (4.5-7.5) Ur Specific [place] (1.000-1.030) Urine Protein (Negative) Urine Glucose (UA) (Negative) Urine Ketones (Negative) Urine Blood (Negative) Urine Nitrite (Negative) Urine Bilirubin (Negative) Urine Urobilinogen (Negative) Ur Leukocyte Esterase (Negative) Urine WBC (Auto) (0-5) /hpf Urine RBC (Auto) (0-4) /hpf U Hyaline Cast (Auto) (0-5) /lpf U Epithel Cells (Auto) (0-5) /lpf Urine Bacteria (Auto) (Negative) Urine Yeast SARS-CoV-2, RNA, NAAT (NEGATIVE)
[2021-01-18] MEDS: ATORVASTATIN 20 MG TAB PO SCH (09:34)
[2021-01-18] MEDS: ONDANSETRON INJ 2 MG/ML 2 ML VIAL IV PRN ×2 (09:42→20:01)
[2021-01-18] MEDS: amLODIPine BESYLATE 5 MG TAB PO SCH (11:36)
[2021-01-18] MEDS: ASPIRIN 81 MG ECTAB PO SCH (11:36)
[2021-01-18] MEDS: RASPBERRY SYRUP 5 ML UDP PO SCH ×3 (11:36→23:54)
[2021-01-18] MEDS: VANCOMYCIN HCL 250 MG/5 ML SOLN PO SCH ×3 (11:37→23:54)
--- NOTE | 2021-01-18 13:10 | Electrocardiogram Report ---
Test Reason : Blood Pressure : / mmHG Vent. Rate : 095 BPM Atrial Rate : 095 BPM P-R Int : 150 ms QRS Dur : 078 ms QT Int : 376 ms P-R-T Axes : 078 069 084 degrees QTc Int : 472 ms Poor data quality, interpretation may be adversely affected Normal sinus rhythm Nonspecific ST and T wave abnormality Abnormal ECG When compared with ECG of 26-DEC-2018 11:04, Nonspecific T wave abnormality no longer evident in Anterior leads Confirmed by Oscar Mcdonnell ([id number]) on 01/18/2021 1:10:26 PM Referred By: REFERRED SELF Confirmed By:Vinod Mcdonnell
[2021-01-18 15:46] LABS: BUN Creatinine Ratio 10.7 (10-20); Calcium 8.7 mg/dl (8.5-10.1); Creatinine Clr Calc Pharmacy 27.5 ml/min; Est GFR (African American) 44.3 ml/min; Est GFR (Non-African American) 38.2 ml/min
--- NOTE | 2021-01-18 23:58 | Communication Note ---
Date of Service: January 18, 2021 Pt was seen and examined. continue to have abdominal pain associated with diarrhea. CT abd/pelvis showed moderate to marked wall thickening of the majority of the colon, most pronounced within the transverse colon and the descending colon. This represents a nonspecific colitis. No free air or abscess. Small amount of abdominal and pelvic ascites. Multiloculated septated cystic lesion within the upper pole of the right kidney, measuring 6.2 x 4.7 x 4.1 cm. Interval development of an apparent enhancing nodular component measuring 2.3 x 1.3 cm within this lesion. Less likely, this could reflect dependent debris or material within this lesion. Stool sent Cdiff. GI consult. continue pain management. Clear liquid diet. Continue monitor closely. MD Scarlet
[2021-01-19] MEDS: RASPBERRY SYRUP 5 ML UDP PO SCH (06:02)
[2021-01-19] MEDS: VANCOMYCIN HCL 250 MG/5 ML SOLN PO SCH (06:02)
[2021-01-19] MEDS: cefTRIAXone SODIUM 1,000 MG in DEXTROSE 5% 50 ML IV SCH (06:39)
[2021-01-19 06:58] LABS: Basophils # (auto) 0.01 K/uL (0-0.2); Basophils % (auto) 0.1 %; Eosinophils # (auto) 0.01 K/uL (0-0.5); Eosinophils % (auto) 0.1 %; Hematocrit (blood only) 28.4 % (37-47); Hemoglobin 9.8 g/dL (12.0-16.0); Immature Granulocytes # (auto) 0.03 K/uL (0.00-0.02); Immature Granulocytes % (auto) 0.2 %; Lymphocytes # (auto) 1.28 K/uL (1.2-3.4); Lymphocytes % (auto) 9.3 %; Mean Corpuscular Hemoglobin 31.8 pg (25-34); Mean Corpuscular Hgb Conc 34.5 g/dL (32-36); Mean Corpuscular Volume 92.2 fL (80-100); Mean Platelet Volume 8.9 fL (7.4-10.4); Monocytes % (auto) 7.3 %; Neutrophils # (auto) 11.45 K/uL (1.4-6.5); Platelet Count 292 K/uL (130-400); RDW Coefficient of Variation 13.8 % (11.5-14.5); RDW Standard Deviation 46.7 fL (36.4-46.3); Red Blood Count 3.08 M/uL (4.2-5.4); White Blood Count 13.78 K/uL (4.8-10.8)
[2021-01-19 07:18] LABS: BUN Creatinine Ratio 10.6 (10-20); Calcium 8.6 mg/dl (8.5-10.1); Creatinine Clr Calc Pharmacy 36.7 ml/min; Est GFR (African American) 62.8 ml/min; Est GFR (Non-African American) 54.1 ml/min; Magnesium 2.2 mg/dl (1.8-2.4); Potassium 3.7 mmol/L (3.5-5.1)
[2021-01-19] MEDS: ATORVASTATIN 20 MG TAB PO SCH (07:23)
[2021-01-19] MEDS: ASPIRIN 81 MG ECTAB PO SCH (07:23)
[2021-01-19] MEDS: amLODIPine BESYLATE 5 MG TAB PO SCH (07:23)
[2021-01-19] MEDS: D5W AND NSS 1,000 ML IV SCH (08:03)
--- NOTE | 2021-01-19 10:07 | Gastroenterology Progress Note ---
Date of Service January 19, 2021 Assessment & Plan (1) Colitis: Plan: 75 year old female with abd pain, diarrhea, colitis on CT - Clinically improving but still reports loose stools - Please submit stools studies - NPO - Clear liquids --> advance as tolerated - Consider bentyl 10 mg three times daily Will sign off. Thank you for allowing us to participate in the care of this patient. Please call with any acute changes, questions or concerns. Please see addendum below with additional recommendation from my supervising physician. Admission and Anticipated Discharge Date Admission Date: January 18, 2021 Supervising Physician Co-Signing Physician Notes Late entry: Patient was seen and examine don 01/19 with CASEY Chavarria whose note reflects our findings and plan. Subjective Pt was seen and evaluated, chart reviewed. Feeling better. Less abd pain. No nausea, vomiting. Diarrhea still present but slowing improving. Review of Systems Review of Systems: All systems reviewed & are unremarkable except as noted in HPI & below Physical Exam Constitutional: WD/WN, vitals as above Neck: trachea midline, no thyromegaly Respiratory: normal respiratory effort, lungs clear to auscultation Cardiovascular: RRR, no murmur, no edema Gastrointestinal (Abdomen): normal bowel sounds, soft, nontender, no hepatosplenomegaly Skin: no rashes, warm and dry Results & Data ([facility]) Vital Signs (Past 12 Hours) Vital Signs Temp Pulse Resp BP Pulse Ox 01/19/21 07:10 37.3 C 92 H 18 132/69 94 01/18/21 23:23 104/57 L Laboratory Results 01/19/21 01/19/21 01/18/21 Range/Units 06:07 06:07 14:37 WBC 13.78 H (4.8-10.8) K/uL RBC 3.08 L (4.2-5.4) M/uL Hgb 9.8 L (12.0-16.0) g/dL Hct 28.4 L (37-47) % MCV 92.2 (80-100) fL MCH 31.8 (25-34) pg MCHC 34.5 (32-36) g/dL RDW Std Deviation 46.7 H (36.4-46.3) fL RDW Coeff of Robert 13.8 (11.5-14.5) % Plt Count 292 (130-400) K/uL MPV 8.9 (7.4-10.4) fL Immature Gran % (Auto) 0.2 % Neut % (Auto) 83.0 % Lymph % (Auto) 9.3 % [place] % (Auto) 7.3 % Eos % (Auto) 0.1 % Baso % (Auto) 0.1 % Neut # (Auto) 11.45 H (1.4-6.5) K/uL Lymph # (Auto) 1.28 (1.2-3.4) K/uL [place] # (Auto) 1.00 H (0.11-0.59) K/uL Eos # (Auto) 0.01 (0-0.5) K/uL Baso # (Auto) 0.01 (0-0.2) K/uL Immature Gran # (Auto) 0.03 H (0.00-0.02) K/uL Sodium 138 (136-145) mmol/L Potassium 3.7 (3.5-5.1) mmol/L Chloride 110 H (98-107) mmol/L Carbon Dioxide 22 (21-32) mmol/L Anion Gap 6.0 (3-11) BUN 11 (7-18) mg/dl Creatinine 1.02 (0.6-1.2) mg/dl Est Cr Clr Drug Dosing 36.7 ml/min Est GFR ( Amer) 62.8 ml/min Est GFR (Non-Af Amer) 54.1 ml/min BUN/Creatinine Ratio 10.6 (10-20) Glucose 110 H (70-99) mg/dl Calcium 8.6 (8.5-10.1) mg/dl Magnesium 2.2 (1.8-2.4) mg/dl 25-OH Vitamin D Total (30-100) ng/ml PTH Intact (18.4-80.1) pg/ml PTH Related Protein Pending 01/18/21 01/18/21 01/18/21 Range/Units 14:37 14:37 14:37 WBC (4.8-10.8) K/uL RBC (4.2-5.4) M/uL Hgb (12.0-16.0) g/dL Hct (37-47) % MCV (80-100) fL MCH (25-34) pg MCHC (32-36) g/dL RDW Std Deviation (36.4-46.3) fL RDW Coeff of Robert (11.5-14.5) % Plt Count (130-400) K/uL MPV (7.4-10.4) fL Immature Gran % (Auto) % Neut % (Auto) % Lymph % (Auto) % [place] % (Auto) % Eos % (Auto) % Baso % (Auto) % Neut # (Auto) (1.4-6.5) K/uL Lymph # (Auto) (1.2-3.4) K/uL [place] # (Auto) (0.11-0.59) K/uL Eos # (Auto) (0-0.5) K/uL Baso # (Auto) (0-0.2) K/uL Immature Gran # (Auto) (0.00-0.02) K/uL Sodium 134 L (136-145) mmol/L Potassium 4.0 D (3.5-5.1) mmol/L Chloride 104 (98-107) mmol/L Carbon Dioxide 23 (21-32) mmol/L Anion Gap 7.0 (3-11) BUN 15 (7-18) mg/dl Creatinine 1.36 H (0.6-1.2) mg/dl Est Cr Clr Drug Dosing 27.5 ml/min Est GFR ( Amer) 44.3 ml/min Est GFR (Non-Af Amer) 38.2 ml/min BUN/Creatinine Ratio 10.7 (10-20) Glucose 124 H (70-99) mg/dl Calcium 8.7 D (8.5-10.1) mg/dl Magnesium (1.8-2.4) mg/dl 25-OH Vitamin D Total 33.2 (30-100) ng/ml PTH Intact 50.1 (18.4-80.1) pg/ml PTH Related Protein
[2021-01-19] MEDS ORDERED: RASPBERRY SYRUP 5 ML UDP PO SCH (12:00)
[2021-01-19] MEDS ORDERED: VANCOMYCIN HCL 250 MG/5 ML SOLN PO SCH (13:00)
--- NOTE | 2021-01-19 13:35 | Hospitalist Progress Note ---
Date of Service January 19, 2021 Assessment & Plan (1) Colitis: (2) Intractable abdominal pain: Plan: A 75-year-old female with past medical history significant for hyperlipidemia, hypertension, chronic kidney disease stage III, who presents with severe abdominal pain. CT abd/pelvis with moderate to marked wall thickening of the majority of the colon, most pronounced within the transverse colon and the descending colon. This represents a nonspecific colitis. No free air or abscess. Small amount of abdominal and pelvic ascites Still endorsing diarrhea but has not been able to obtain sample for c diff study. RN aware as well Stool studies negative to date. Still attempting to collect c diff sample Vanco discontinued Advanced from clears to regular diet for lunch Abdominal pain improving (3) UTI (urinary tract infection): Plan: Preliminary urine culture from 01/18 growing gram negative bacilli. Sensitivities pending Continue empiric rocephin (4) HTN (hypertension): Plan: Continue amlodipine (5) CKD (chronic kidney disease), stage III: Plan: Renal function returned to baseline. Continue to monitor DVT Ppx: SCDs Code status: FULL PCP: Melyssa Dispo: Admitted to med/surg Patient seen in collaboration with Dr. Novak. Please see addendum. Admission and Anticipated Discharge Date Admission Date: January 18, 2021 Supervising Physician Co-Signing Physician Notes Patient seen and examined. Agreed with Delfina CHILDRESS exam, assessment and plan. Pt said that she feels alot better. She said that pain improves. She has not had a bowel movement yet. Denies any nausea and vomiting. CT abd/pelvis showed moderate to marked wall thickening of the majority of the colon, most pronounced within the transverse colon and the descending colon. Will discontinue PO Vanco for Cdiff. Tolerated clear liquid diet, will advance. Urine cx grew gram negative bacilli. Will continue ceftriaxone IV. Will follow urine sensitivity. MD Scarlet Subjective Patient seen and examined in 382-1. Feeling better today but still with watery diarrhea. Has not been able to obtain stool sample yet but was encouraged again to obtain. Endorsing some abdominal bloating without pain. No nausea or vomiting. Tolerating clears and plan to advance to regular diet today. No fever, chills, chest pain, shortness of breath, dysuria. Review of Systems Review of Systems: At least ten systems reviewed and negative except as noted in the HPI. Physical Exam Physical Exam: Gen: WD/WN, NAD, sitting at side of bed, A&Ox3, anxious HEENT: Normocephalic, atraumatic, conjunctivae moist, sclerae anicteric, mucous membranes moist Lung: Clear to Auscultation bilaterally, no wheezes/rales/rhonchi Heart: Regular rate, regular rhythm, no murmurs, rubs, or gallops Abdomen: Soft, mild distention, lower abdominal discomfort, +BS x 4 Extremities: no edema Skin: Warm, no rash Results & Data Results & Data ([facility]) Vital Signs (Past 12 Hours) Vital Signs Temp Pulse Resp BP Pulse Ox 01/19/21 07:10 37.3 C 92 H 18 132/69 94 Laboratory Results Short CBC 01/19/21 Range/Units 06:07 WBC 13.78 H (4.8-10.8) K/uL Hgb 9.8 L (12.0-16.0) g/dL Hct 28.4 L (37-47) % Plt Count 292 (130-400) K/uL BMP 01/18/21 01/19/21 14:37 06:07 Sodium 134 L 138 Potassium 4.0 D 3.7 Chloride 104 110 H Carbon Dioxide 23 22 BUN 15 11 Creatinine 1.36 H 1.02 Glucose 124 H 110 H Calcium 8.7 D 8.6 Diagnostic Findings Abdomen/Pelvis CT 01/18/21 02:01 CT OF THE ABDOMEN AND PELVIS WITH CONTRAST CLINICAL HISTORY: left sided abdominal pain, history diverticulitis COMPARISON STUDY: CT of the abdomen and pelvis December 26, 2018. MRCP May 30, 2018. TECHNIQUE: Following IV administration of 93 mL of Optiray, axial images of the abdomen and pelvis were obtained from the lung bases to the proximal femurs. Images were reviewed in the axial, sagittal, and coronal planes. IV contrast was administered without complication. Automated exposure control was utilized for the study. A dose lowering technique was utilized adhering to the principles of ALARA. CT DOSE: 244.51 mGycm FINDINGS: Subpleural opacities within the right lower lung liver atelectasis. A small hiatal hernia is noted. No pneumatosis, free air or portal venous gas is present. There are several hepatic cysts. There is no biliary or pancreatic ductal dilatation. No peripancreatic or pericholecystic infiltration. Note is made of a multiloculated septated 6.2 x 4.7 x 4.1 cm cystic lesion within the upper pole of the right kidney. This lesion was shown on prior CT. However, there has been interval development of apparent nodular irregular enhancing component measuring 2.3 x 1.3 cm within the posterior aspect of this lesion. There is no hydronephrosis. There is no evidence for a bowel obstruction. There is moderate to marked wall thickening of the majority of the colon. This is most pronounced within the transverse colon and the descending colon. A small amount of fluid within the pelvis is present. There is no free air or abscess. There is moderate plaque of the abdominal aorta which is normal in caliber. No acute fracture or suspicious lesion is identified within the visualized skeletal structures. There is no lymphadenopathy. Small amount of abdominal ascites is present. Bladder is distended. IMPRESSION: 1. Moderate to marked wall thickening of the majority of the colon, most pronounced within the transverse colon and the descending colon. This represents a nonspecific colitis. No free air or abscess. Small amount of abdominal and pelvic ascites. 2. Multiloculated septated cystic lesion within the upper pole of the right kidney, measuring 6.2 x 4.7 x 4.1 cm. Interval development of an apparent enhancing nodular component measuring 2.3 x 1.3 cm within this lesion. Less likely, this could reflect dependent debris or material within this lesion. A neoplasm is the diagnosis of exclusion. Nonemergent renal protocol MRI is recommended for further evaluation. ACT 112: Positive. There are findings on this exam that require communication between the performing entity and the patient following Patient Test Result Information Act ([place] Act 112) guidelines. Electronically signed by: Pedro Nelson M.D. 01/18/2021 6:54 AM (1) UTI (urinary tract infection) Hematuria presence: with hematuria Urinary tract infection type: site unspecified Qualified Code(s): N39.0 - Urinary tract infection, site not specified; R31.9 - Hematuria, unspecified
[2021-01-19 14:10] LABS: Adenovirus F 40/41 PCR Not Detected (NotDetected); Astrovirus PCR Not Detected (NotDetected); Campylobacter PCR Not Detected (NotDetected); Clostridium diff Toxin A/B PCR Not Detected (NotDetected); Cryptosporidium PCR Not Detected (NotDetected); Cyclospora cayetanensis PCR Not Detected (NotDetected); Entamoeba histolytica PCR Not Detected (NotDetected); Enteroaggregative E.coli(EAEC) Not Detected (NotDetected); Enteropathogenic E.coli (EPEC) Not Detected (NotDetected); Enterotoxigenic E.coli (ETEC) Not Detected (NotDetected); Giardia lamblia PCR Not Detected (NotDetected); Norovirus GI/GII PCR Not Detected (NotDetected); Plesiomonas shigelloides PCR Not Detected (NotDetected); Rotavirus A PCR Not Detected (NotDetected); Salmonella PCR Not Detected (NotDetected); Sapovirus PCR Not Detected (NotDetected); Shiga-like Toxin E.coli (STEC) Not Detected (NotDetected); Shigella/Enteroinvasive E.coli Not Detected (NotDetected); Vibrio cholerae PCR Not Detected (NotDetected); Vibrio species PCR Not Detected (NotDetected); Yersinia enterocolitica PCR Not Detected (NotDetected)
[2021-01-19] MEDS: ONDANSETRON INJ 2 MG/ML 2 ML VIAL IV PRN (16:21)
[2021-01-19] MEDS: HYDROmorphone INJ 0.5 MG/0.5 ML SYR IV PRN (16:22)
[2021-01-20] MEDS: ONDANSETRON INJ 2 MG/ML 2 ML VIAL IV PRN (00:22)
[2021-01-20] MEDS: cefTRIAXone SODIUM 1,000 MG in DEXTROSE 5% 50 ML IV SCH (06:27)
[2021-01-20] MEDS: ATORVASTATIN 20 MG TAB PO SCH (07:05)
[2021-01-20] MEDS: ASPIRIN 81 MG ECTAB PO SCH (07:05)
[2021-01-20] MEDS: amLODIPine BESYLATE 5 MG TAB PO SCH (07:05)
--- NOTE | 2021-01-20 14:14 | Discharge Summary ---
Date of Service January 20, 2021 Admission HPI Per Admitting Provider A 75-year-old female with past medical history significant for hyperlipidemia, hypertension, chronic kidney disease stage III, who presents with severe abdominal pain. The patient states the abdominal pain is located in the left side of abdomen and also having diarrhea that started today. The whole day she was having pain, could not eat much because of pain. The patient is very hard of hearing. Denies any other complaints. Denies any chest pain, shortness of breath, or cough. No headache, no nausea, no shortness of breath. Currently, hemodynamically stable. The patient was here on 12/26/2020 with abdominal pain and at that time CAT scan showed nonspecific colitis and at that time she did not want to get admitted. Admission Exam Per Admitting Provider GENERAL: The patient is thin and frail, not in acute distress. VITAL SIGNS: Temperature 36.6, pulse 77, respiratory rate 12, blood pressure 115/53, oxygen 94% on room air. HEENT: Pupils equal, round and reactive to light. Oral mucosa moist. NECK: No JVD, no neck masses. CARDIOVASCULAR: S1 and S2 heard. Regular rate and rhythm. No murmur, no gallop. RESPIRATORY SYSTEM: Normal AP diameter. No accessory muscle use. No wheezing, no crackles. ABDOMEN: Soft, bowel sounds sluggish. Left lower quadrant tenderness present. Guarding present. No distention. CENTRAL NERVOUS SYSTEM: Cranial nerves II-XII grossly intact, nonfocal. EXTREMITIES: No edema, no erythema. Principal Diagnosis non-specific colitis, E coli urinary tract infection Discharge Exam Gen: WD/WN, NAD, sitting at side of bed, A&Ox3 HEENT: Normocephalic, atraumatic, conjunctivae moist, sclerae anicteric, mucous membranes moist Lung: Clear to Auscultation bilaterally, no wheezes/rales/rhonchi Heart: Regular rate, regular rhythm, no murmurs, rubs, or gallops Abdomen: Soft, mild distention of lower abdomen, +BS x 4 Extremities: no edema Skin: Warm, no rash Discharge Data Allergies Allergy/AdvReac Type Severity Reaction Status Date / Time azithromycin Allergy Severe hyperventil Verified 01/18/21 01:54 ation Consultations 01/18/21 04:18 ED Decision to Admit Stat 01/18/21 08:00 Consult Gastroenterology Routine Ordered Studies 01/18/21 02:01 CT abd pelvis IV con only Urgent Hospital Course (1) Colitis: (2) Intractable abdominal pain: (3) UTI (urinary tract infection): (4) HTN (hypertension): (5) CKD (chronic kidney disease), stage III: (6) Nodule of kidney: This is a 75-year-old female with past medical history significant for hyperlipidemia, hypertension, chronic kidney disease stage III, who presents with severe abdominal pain and diarrhea. CT abd/pelvis with moderate-marked wall thickening of the majority of the colon, consistent with a nonspecific colitis. No free air or abscess. Afebrile. Stool cultures negative. Initially treated with vanco for concern for c diff but diarrhea resolved before a sample was able to be obtained. Vanco discontinued. Found to have an E coli UTI sensitive to Cefdinir. Will complete 7 day antibiotic treatment course. Symptoms have improved with antibiotic therapy and patient has been tolerating a regular diet again without issue. Encouraged to use tylenol for resolving abdominal discomfort. Of note, CT abd/pelvis showed interval development of an enhancing nodule within the upper pole of R kidney. Nonemergent renal protocol MRI is recommended for further evaluation. Hemodynamically stable at time of discharge home. Total Time Total Time Spent Total Time Spent (In Minutes): 35 Discharge Plan Discharge Items Patient Disposition: Home - Self-Care Reason For Visit: ABDOMINAL PAIN Discharge Diagnosis: non-specific colitis, E coli urinary tract infection Activity: Resume your previous activity Non-emergency contact: Primary Care Provider Call non-emergency contact if: you have any medication questions, your symptoms worsen, your pain is concerning for you and you have a fever Follow-up/Referrals: Cristian Ragsdale MD [Primary Care Provider] - (Date & Time 01/26/2021 3:00 PM Provider Cristian Ragsdale MD Department [facility] ) Diet: Heart Healthy Addtl Attending Provider Instructions: You were admitted for abdominal pain and found to have a non-specific colitis CT abd/pelvis with moderate-marked wall thickening of the majority of the colon, consistent with a nonspecific colitis. No free air or abscess Stool cultures negative Unable to collect sample for c diff as diarrhea resolved You were also found to have an E coli urinary tract infection Symptoms have improved with antibiotic therapy and you are tolerating a regular diet again without issue Please take Tylenol as needed for resolving abdominal discomfort (maximum of 3,000 mg within 24 hour period) MEDICATION CHANGES: Cefdinir 300mg BID (antibiotic) for 4 days to complete 7 days of treatment RECOMMENDATIONS FOR FOLLOW-UP: Please follow up with Dr. Ragsdale in clinic on 01/26/21 at 3:00pm for hospital follow up. Your CT abd/pelvis showed interval development of an enhancing nodule within the upper pole of R kidney. Nonemergent renal protocol MRI is recommended for further evaluation. OTHER INSTRUCTIONS: Seek medical attention if you have: * temperature above 101 * chest pain or trouble breathing * abdominal pain, nausea, vomiting * diarrhea, dark stools or bloody stools * any unanswered questions or concerns Call 911 if symptoms are severe. Please take good care of yourself. Call if you have any questions or problems. You can reach a [facility] hospitalist on duty at [facility] 24 hours a day by calling [phone]. Delfina Chin PA-C [facility] Hospitalist Pending Studies at Discharge: No Studies:: Nonemergent renal protocol MRI is recommended for further evaluation of R renal nodule visualized on CT abd/pelvis Stand-Alone Forms: My [facility], Smoking Cessation Medications and DC Order Prescriptions: New cefdinir 300 mg Capsule 300 mg PO BID Qty: 8 RF: 0 Continued aspirin 81 mg Tablet,Delayed Release (Dr/Ec) 81 mg PO QAM RF: 0 amlodipine 5 mg Tablet 5 mg PO QAM RF: 0 atorvastatin 20 mg tablet 20 mg PO DAILY RF: 0 Discharge Orders: Discharge Order (Routine); Ordered 01/20/21 Ordered By: Delfina Chin Admission Data Admit Date/Time: 01/19/21 15:18 Attending Provider: Zack Novak Admit Provider: Greg Charles Primary Care Provider: Cristian Ragsdale Other Providers: Luisa Melara Other Interventions: Discharge Summary Assessment (RN) Last Done: 01/20/21 14:08
[2021-01-20] MEDS ORDERED: CEFDINIR 300 MG CAP PO SCH (21:00)
[2021-01-21] MEDS ORDERED: CEFDINIR 300 MG CAP PO SCH (09:00)
== END 2021-01-20 14:38 | disposition home or self-care (01) | DRG 392 ==
LOC: ED 00:46 → 3N 00:46
DX: E86.0 Dehydration; Z79.82 Long term (current) use of aspirin; Z79.899 Other long term (current) drug therapy; R18.8 Other ascites; E78.5 Hyperlipidemia, unspecified; N39.0 Urinary tract infection, site not specified; R10.32 Left lower quadrant pain; Z87.891 Personal history of nicotine dependence; I12.9 Hypertensive chronic kidney disease with stage 1 through stage 4 chronic kidney disease, or unspecified chronic kidney disease; Z87.19 Personal history of other diseases of the digestive system; Z88.1 Allergy status to other antibiotic agents; N28.89 Other specified disorders of kidney and ureter; Z77.22 Contact with and (suspected) exposure to environmental tobacco smoke (acute) (chronic); B96.20 Unspecified Escherichia coli [E. coli] as the cause of diseases classified elsewhere; Z82.49 Family history of ischemic heart disease and other diseases of the circulatory system; E83.52 Hypercalcemia; M19.90 Unspecified osteoarthritis, unspecified site; K52.9 Noninfective gastroenteritis and colitis, unspecified; N18.30 Chronic kidney disease, stage 3 unspecified